=== PATIENT | male | born 1965 | race Caucasian/White ===

== ENCOUNTER 2023-05-31 14:30 | Observation (INO) ==
[2023-05-31] MEDS ORDERED: ASPIRIN CHEW 324 MG PO STA (15:04)
[2023-05-31] MEDS ORDERED: dilTIAZem HCl 5 MG/ML 5 ML VIAL IV ONE (15:30)
[2023-05-31] MEDS ORDERED: dilTIAZem HCl 5 MG/ML 5 ML VIAL IV STA (15:31)
[2023-05-31] MEDS ORDERED: SODIUM CHLORIDE 0.9% 1,000 ML IV ONE (15:32)
--- NOTE | 2023-05-31 16:04 | Emergency Department Note ---
History of Present Illness General Chief complaint: Arrhythmia/Palpitations Stated complaint: REF BY , PALPITATIONS Time Seen by Provider: 05/31/23 15:04 History of Present Illness Provider complaint: Shortness of breath Onset (ago): week(s) 3 Maximum Pain Intensity: 4 57-year-old male presents emergency department for shortness of breath. Patient was referred here by his PCP. Patient reports he has been having difficulty breathing cough for the last 3 weeks. Patient dates he went to his PCP today and was told he was in atrial fibrillation. Home Medications Medication Instructions Recorded Confirmed Type fluticasone 100 mcg-salmeterol 50 1 ea inhalation BID 05/31/23 05/31/23 History mcg/dose blistr powdr for inhalation (Advair Diskus) losartan 50 mg tablet 50 mg PO DAILY 05/31/23 05/31/23 History pantoprazole 40 mg tablet,delayed 40 mg PO QAM 05/31/23 05/31/23 History release tadalafil 5 mg tablet 5 mg PO ONCE PRN Sexual Activity 05/31/23 05/31/23 History Allergies Allergy/AdvReac Type Severity Reaction Status Date / Time tetanus toxoid, adsorbed Allergy Intermediate FEVER,SWELL Verified 05/31/23 15:39 ING Past Med/Surg History Medical History No pertinent family history HTN (hypertension) Surgical History No pertinent past surgical history Social History Smoking Status: Former smoker Feels Safe at Home: Yes Physical Exam Vital Signs Vital Signs - 24 hr 05/31/23 14:37 05/31/23 14:37 05/31/23 15:09 Temperature 36.5 C Temperature Source Temporal Artery Scan Pulse Rate 102 H 160 H Pulse Rate from SpO2 Sensor Respiratory Rate 20 Respiratory Effort / Characteristics Spontaneous Labored Spontaneous Respiratory Depth Normal Blood Pressure 137/79 Blood Pressure Mean 98 Pulse Oximetry 97 Oxygen Delivery Method Room Air Oxygen Flow Rate Sepsis Recent Fever Within 48 Hours No Sepsis New/Unexplained Change in Mental Status No Sepsis Action Taken by Nursing No Action Required 05/31/23 15:09 05/31/23 15:10 05/31/23 15:12 Temperature Temperature Source Pulse Rate 160 H 156 H Pulse Rate from SpO2 Sensor Respiratory Rate 23 25 H Respiratory Effort / Characteristics Respiratory Depth Blood Pressure 135/99 Blood Pressure Mean 111 Pulse Oximetry Oxygen Delivery Method Oxygen Flow Rate Sepsis Recent Fever Within 48 Hours Sepsis New/Unexplained Change in Mental Status Sepsis Action Taken by Nursing 05/31/23 15:12 05/31/23 15:20 05/31/23 15:30 Temperature Temperature Source Pulse Rate 153 H 160 H 151 H Pulse Rate from SpO2 Sensor Respiratory Rate 21 22 22 Respiratory Effort / Characteristics Respiratory Depth Blood Pressure Blood Pressure Mean Pulse Oximetry Oxygen Delivery Method Oxygen Flow Rate Sepsis Recent Fever Within 48 Hours Sepsis New/Unexplained Change in Mental Status Sepsis Action Taken by Nursing 05/31/23 15:36 05/31/23 15:36 05/31/23 15:40 Temperature Temperature Source Pulse Rate 102 H 112 H Pulse Rate from SpO2 Sensor Respiratory Rate 26 H 22 Respiratory Effort / Characteristics Respiratory Depth Blood Pressure 128/95 Blood Pressure Mean 108 Pulse Oximetry Oxygen Delivery Method Oxygen Flow Rate Sepsis Recent Fever Within 48 Hours Sepsis New/Unexplained Change in Mental Status Sepsis Action Taken by Nursing 05/31/23 15:50 05/31/23 16:00 05/31/23 16:10 Temperature Temperature Source Pulse Rate 103 H 114 H 112 H Pulse Rate from SpO2 Sensor Respiratory Rate 15 16 20 Respiratory Effort / Characteristics Respiratory Depth Blood Pressure Blood Pressure Mean Pulse Oximetry Oxygen Delivery Method Oxygen Flow Rate Sepsis Recent Fever Within 48 Hours Sepsis New/Unexplained Change in Mental Status Sepsis Action Taken by Nursing 05/31/23 16:23 05/31/23 16:30 05/31/23 16:30 Temperature Temperature Source Pulse Rate 141 H 142 H Pulse Rate from SpO2 Sensor Respiratory Rate 23 Respiratory Effort / Characteristics Respiratory Depth Blood Pressure 102/73 Blood Pressure Mean 78 Pulse Oximetry Oxygen Delivery Method Oxygen Flow Rate Sepsis Recent Fever Within 48 Hours Sepsis New/Unexplained Change in Mental Status Sepsis Action Taken by Nursing 05/31/23 16:40 05/31/23 16:40 05/31/23 16:46 Temperature Temperature Source Pulse Rate 137 H Pulse Rate from SpO2 Sensor 97 H Respiratory Rate 22 Respiratory Effort / Characteristics Respiratory Depth Blood Pressure Blood Pressure Mean Pulse Oximetry 98 94 Oxygen Delivery Method Room Air Room Air Oxygen Flow Rate 0 Sepsis Recent Fever Within 48 Hours Sepsis New/Unexplained Change in Mental Status Sepsis Action Taken by Nursing 05/31/23 16:48 05/31/23 16:48 05/31/23 16:50 Temperature Temperature Source Pulse Rate 128 H 126 H Pulse Rate from SpO2 Sensor 104 H 114 H Respiratory Rate 15 19 Respiratory Effort / Characteristics Respiratory Depth Blood Pressure 152/92 H Blood Pressure Mean 116 Pulse Oximetry 97 96 Oxygen Delivery Method Oxygen Flow Rate Sepsis Recent Fever Within 48 Hours Sepsis New/Unexplained Change in Mental Status Sepsis Action Taken by Nursing 05/31/23 17:00 05/31/23 17:00 05/31/23 17:10 Temperature Temperature Source Pulse Rate 138 H 130 H Pulse Rate from SpO2 Sensor 89 96 H Respiratory Rate 15 18 Respiratory Effort / Characteristics Respiratory Depth Blood Pressure 170/110 H Blood Pressure Mean 122 Pulse Oximetry 94 96 Oxygen Delivery Method Oxygen Flow Rate Sepsis Recent Fever Within 48 Hours Sepsis New/Unexplained Change in Mental Status Sepsis Action Taken by Nursing 05/31/23 17:15 05/31/23 17:15 05/31/23 17:20 Temperature Temperature Source Pulse Rate 131 H 127 H Pulse Rate from SpO2 Sensor 100 H 91 H Respiratory Rate 21 19 Respiratory Effort / Characteristics Respiratory Depth Blood Pressure 142/117 H Blood Pressure Mean 134 Pulse Oximetry 95 97 Oxygen Delivery Method Oxygen Flow Rate Sepsis Recent Fever Within 48 Hours Sepsis New/Unexplained Change in Mental Status Sepsis Action Taken by Nursing 05/31/23 17:30 05/31/23 17:40 05/31/23 18:06 Temperature Temperature Source Pulse Rate 118 H 128 H 126 H Pulse Rate from SpO2 Sensor 88 83 120 H Respiratory Rate 15 16 21 Respiratory Effort / Characteristics Respiratory Depth Blood Pressure Blood Pressure Mean Pulse Oximetry 97 93 96 Oxygen Delivery Method Oxygen Flow Rate Sepsis Recent Fever Within 48 Hours Sepsis New/Unexplained Change in Mental Status Sepsis Action Taken by Nursing 05/31/23 18:07 05/31/23 18:07 05/31/23 18:10 Temperature Temperature Source Pulse Rate 134 H 113 H Pulse Rate from SpO2 Sensor 62 108 H Respiratory Rate 24 24 Respiratory Effort / Characteristics Respiratory Depth Blood Pressure 160/135 H Blood Pressure Mean 141 Pulse Oximetry 94 95 Oxygen Delivery Method Oxygen Flow Rate Sepsis Recent Fever Within 48 Hours Sepsis New/Unexplained Change in Mental Status Sepsis Action Taken by Nursing 05/31/23 18:20 05/31/23 18:30 05/31/23 18:31 Temperature Temperature Source Pulse Rate 139 H 120 H Pulse Rate from SpO2 Sensor 129 H 90 Respiratory Rate 20 22 Respiratory Effort / Characteristics Respiratory Depth Blood Pressure 139/110 H Blood Pressure Mean 130 Pulse Oximetry 97 93 Oxygen Delivery Method Oxygen Flow Rate Sepsis Recent Fever Within 48 Hours Sepsis New/Unexplained Change in Mental Status Sepsis Action Taken by Nursing 05/31/23 18:31 05/31/23 18:40 05/31/23 18:50 Temperature Temperature Source Pulse Rate 111 H 124 H 128 H Pulse Rate from SpO2 Sensor 108 H 109 H 81 Respiratory Rate 15 22 22 Respiratory Effort / Characteristics Respiratory Depth Blood Pressure Blood Pressure Mean Pulse Oximetry 96 97 94 Oxygen Delivery Method Oxygen Flow Rate Sepsis Recent Fever Within 48 Hours Sepsis New/Unexplained Change in Mental Status Sepsis Action Taken by Nursing 05/31/23 19:00 05/31/23 19:17 Temperature Temperature Source Pulse Rate 126 H 135 H Pulse Rate from SpO2 Sensor Respiratory Rate 25 H Respiratory Effort / Characteristics Respiratory Depth Blood Pressure Blood Pressure Mean Pulse Oximetry Oxygen Delivery Method Oxygen Flow Rate Sepsis Recent Fever Within 48 Hours Sepsis New/Unexplained Change in Mental Status Sepsis Action Taken by Nursing Physical Exam GENERAL: oriented to person, place, and time. appears well-developed and well- nourished. HENT: Exam performed. - Head: Normocephalic and atraumatic. EYES: Conjunctivae and EOM are normal. Right eye exhibits no discharge. Left eye exhibits no discharge. No scleral icterus. NECK: Normal range of motion. Neck supple. No JVD present. CV: Tachycardic rate, irregular rhythm, normal heart sounds and intact distal pulses. There is no peripheral edema. Palpable radial pulses bue. PULM/CHEST: Effort normal and breath sounds normal. No respiratory distress. No stridor. no wheezes. no rales. ABD: The abdomen is soft. There is no tenderness. NEURO: Motor and sensation grossly intact. SKIN: Skin is warm and dry. He is not diaphoretic. PSYCH: normal mood and affect. Behavior is normal. Judgment and thought content normal. Course Course 1530: The patient was evaluated in room B3. A complete history and physical exam was performed Cardiac monitoring: An order was placed for continuous cardiac monitoring. The monitor shows a rate of 140-160 with atrial fibrilation rhythm interpreted by me Patient in A-fib RVR. Cardizem 20 mg ordered for the patient. Patient's ventricular rate improved. Labs and imaging pending. 1641: Patient back in A-fib RVR with a heart rate in [id number]. Cardizem drip will be initiated. Patient is COVID-positive. Labs are pending. 1845: Vital signs stable on Cardizem drip. Labs show an elevated D-dimer, CTA negative for PE. Troponin negative. Patient be admitted to the [facility] hospitalist team. Administered Medications Diltiazem HCl 125 mg/ Dextrose 125 mls @ 7.5 mls/hr IV .[id number] LAINA; Protocol Stop: 06/30/23 16:44 Last Titration: 05/31/23 18:05 Dose: 7.5 mg/hr, 7.5 mls/hr Documented By: EZ Co-signed By: ESPERANZA Admin: 05/31/23 16:42 Dose: 5 mg/hr, 5 mls/hr Documented By: ESPERANZA Co-signed By: EZ Heparin Sodium/Dextrose (Heparin Sodium/Dextrose) 25,000 units in 500 mls @ 32 mls/hr IV .[id number] LAINA; Protocol Stop: 06/30/23 20:29 Last Admin: 05/31/23 20:36 Dose: 1,600 units/hr, 32 mls/hr Documented By: EZ Co-signed By: Nitroglycerin (Nitroglycerin 2% Ointment 30gm Tube) 0.5 inch EXT Q6 LAINA Stop: 06/30/23 20:29 Last Admin: 05/31/23 20:33 Dose: 0.5 inch Documented By: EZ Discontinued Medications Aspirin (Aspirin Chew 324 Mg) 324 mg PO NOW STA Stop: 05/31/23 15:05 Last Admin: 05/31/23 15:35 Dose: 324 mg Documented By: EZ Diltiazem HCl (Diltiazem Hcl 5 Mg/Ml 5 Ml Vial) Confirm Administered Dose 25 mg IV .STK-MED ONE Stop: 05/31/23 15:31 Last Admin: 05/31/23 15:41 Dose: Not Given Documented By: EZ Diltiazem HCl (Diltiazem Hcl 5 Mg/Ml 5 Ml Vial) 20 mg IV NOW STA Stop: 05/31/23 15:32 Last Admin: 05/31/23 15:41 Dose: 20 mg Documented By: EZ Co-signed By: QGV Sodium Chloride (Nss) 1,000 mls @ 999 mls/hr IV .Q1H1M ONE Stop: 05/31/23 16:32 Last Infusion: 12/06/23 16:44 Dose: Infused Documented By: Admin: 05/31/23 15:41 Dose: 999 mls/hr Documented By: EZ Ioversol (Optiray 320 125ml) 118 ml IV ONCE ONE Stop: 05/31/23 17:59 Last Admin: 05/31/23 17:59 Dose: 118 ml Documented By: DINO Miscellaneous (Stat Iv Infusion Titration Per Protocol) 1 each N/A NOW STA Stop: 05/31/23 16:32 Last Admin: 05/31/23 16:48 Dose: Not Given Documented By: ESPERANZA Critical Care Time Critical Care Time: Yes Total Critical Care Time: 76 I have personally spent greater than 76 minutes of critical care time in the direct management of this patient. This includes bedside care, interpretation of diagnostic studies, and testing, discussion with consultants, patient, and family members, and other required patient management activities. This 76 minutes is in excess of all separately billable procedures. Medical Decision Making Laboratory Data Attestation: I reviewed the patient's lab results. 05/31/23 14:56 05/31/23 14:56 Lab Results 05/31/23 05/31/23 Range/Units 14:56 15:15 WBC 5.91 (4.8-10.8) K/ul RBC 5.36 (4.70-6.10) M/uL Hgb 16.6 (14.0-18.0) g/dl Hct 46.6 (42.0-52.0) % MCV 86.9 (80.0-100.0) fL MCH 31.0 (25.0-34.0) pg MCHC 35.6 (32.0-36.0) g/dL RDW Std Deviation 40.4 (36.4-46.3) fL RDW Coeff of Claudette 12.9 (11.5-14.5) % Plt Count 270 (130-400) K/uL MPV 9.8 (9.4-12.4) fL Immature Gran % (Auto) 0.5 % Neut % (Auto) 59.0 % Lymph % (Auto) 29.9 % Wolfe % (Auto) 9.6 % Eos % (Auto) 0.3 % Baso % (Auto) 0.7 % Neut # (Auto) 3.48 (1.40-6.50) K/uL Lymph # (Auto) 1.77 (1.20-3.40) K/uL Wolfe # (Auto) 0.57 (0.11-0.59) K/uL Eos # (Auto) 0.02 (0.00-0.50) K/uL Baso # (Auto) 0.04 (0.00-0.20) K/uL Immature Gran # (Auto) 0.03 (0.01-0.20) K/uL PT 10.9 (9.0-12.0) Seconds INR 1.0 (0.9-1.1) APTT 27 (21-31) Seconds PTT Ratio 1.0 D-Dimer 1050 H* (0-500) ug/L FEU Sodium 139 (136-145) mmol/L Potassium 4.1 (3.5-5.1) mmol/L Chloride 103 (98-107) mmol/L Carbon Dioxide 26 (21-32) mmol/L Anion Gap 10 (3-11) BUN 15 (6-23) mg/dl Creatinine 1.26 (0.6-1.4) mg/dl Est Cr Clr Drug Dosing 80.3 ml/min Est GFR ( Amer) 72.9 ml/min Est GFR (Non-Af Amer) 62.9 ml/min BUN/Creatinine Ratio 11.9 (10-20) Glucose 118 H (70-99(Fasting)) mg/dl Calcium 10.4 H (8.6-10.3) mg/dl Troponin I High Sens 6.4 (0-20) pg/ml Lipase 70 (11-82) U/L SARS-CoV-2, RNA, NAAT POSITIVE A* (NEGATIVE) Imaging Data Attestation: I personally reviewed and interpreted this imaging study as follows: My Impression: Chest x-ray negative. Airway clear. No pneumothorax. No consolidation. No cardiomegaly or cephalization.. No free air under the diaphragm. No fractures of the skeletal structures. Radiologist's Impression: Chest X-Ray 05/31/23 15:04 XR chest 1V portable HISTORY: Cough. Shortness of breath. Chest pain, nonspecific COMPARISON: None. FINDINGS: The lungs are clear. Cardiac silhouette is normal in size. No pleural effusions. No pneumothorax. IMPRESSION: No acute process. ACT 112: Negative or not required by law. Electronically signed by: Montrell Woodard M.D. 05/31/2023 4:09 PM Chest CTA 05/31/23 17:03 CHEST CTA for PULMONARY ARTERIES CT DOSE: 887.09 mGy.cm HISTORY: Shortness of breath. Interval development of atrial fibrillation. ro PE TECHNIQUE: Multiaxial CT images of the chest were performed following the intravenous administration of contrast to evaluate the pulmonary arteries. 3D/Maximal intensity projection images were also obtained. Sagittal and coronal reformations were also reviewed. A dose lowering technique was utilized adhering to the principles of ALARA. COMPARISON STUDY: None. FINDINGS: Normal caliber thoracic aorta with no evidence for a dissection. The heart is top normal in size. No filling defects within the pulmonary arteries to suggest a pulmonary embolus. Limited views of the upper abdomen demonstrate hepatic steatosis and a normal spleen. The visualized adrenal glands are unremarkable. The thyroid gland enhances normally. Normal esophagus. No pleural or pericardial effusions. Calcified subcarinal lymph nodes. No lymphadenopathy within the chest. No acute fractures. No pneumothorax. Mild central bronchial wall thickening. Calcified granuloma within the right lower lobe. Right lower lobe linear densities favor subsegmental atelectasis. There are few small patchy and nodular groundglass airspace opacities within the right upper lobe posteriorly. This favors a low-grade pneumonitis. IMPRESSION: 1. No evidence for a pulmonary embolus. 2. There are few small patchy and nodular groundglass airspace opacities within the right upper lobe posteriorly. This favors a low-grade pneumonitis. 3. Hepatic steatosis. ACT 112: Negative or not required by law. Electronically signed by: Montrell Woodard M.D. 05/31/2023 6:33 PM ECG Data Attestation: I personally reviewed and interpreted this ECG as follows: Additional Comments: EKG #1 at 1459: Atrial fibrillation with a rate of 162. QRS [address] elevation or ST depression. EKG #2 at 1534: Atrial fibrillation with a rate of 156. QRS [address] elevation or ST depression. EKG #3 at 1535 status post Cardizem 20 mg IV bolus: Atrial fibrillation with a rate of 91. QRS and QTc intervals are within normal limits. No ST elevation or ST depression. MDM Narrative 1530: The patient was evaluated in room B3. A complete history and physical exam was performed Cardiac monitoring: An order was placed for continuous cardiac monitoring. The monitor shows a rate of 140-160 with atrial fibrilation rhythm interpreted by me Patient in A-fib RVR. Cardizem 20 mg ordered for the patient. Patient's ventricular rate improved. Labs and imaging pending. 1641: Patient back in A-fib RVR with a heart rate in [id number]. Cardizem drip will be initiated. Patient is COVID-positive. Labs are pending. 1845: Vital signs stable on Cardizem drip. Labs show an elevated D-dimer, CTA negative for PE. Troponin negative. [facility] & Plan Atrial fibrillation Discharge Plan Visit Data Chief Complaint: Arrhythmia/Palpitations Stated Complaint: REF BY , PALPITATIONS ED Provider: Jeferson Zazueta Discharge Problem: Atrial fibrillation Patient Disposition: Admitted As Inpatient Forms [facility] Pres[facility] Prescriptions: No Action losartan 50 mg tablet 50 mg PO DAILY pantoprazole 40 mg tablet,delayed release (DR/EC) 40 mg PO QAM fluticasone propion-salmeterol [Advair Diskus] 100-50 mcg/dose blister with device 1 ea INHALATION BID tadalafil 5 mg tablet 5 mg PO ONCE PRN (Reason: Sexual Activity) Referrals Referrals: Analy Betancourt DO [Primary Care Provider] - Discharge Problem: Atrial fibrillation Qualifiers: Atrial fibrillation type: unspecified Qualified Code(s): I48.91 - Unspecified atrial fibrillation
--- NOTE | 2023-05-31 16:08 | Electrocardiogram Report ---
Test Reason : Blood Pressure : / mmHG Vent. Rate : 162 BPM Atrial Rate : 000 BPM P-R Int : 000 ms QRS Dur : 076 ms QT Int : 244 ms P-R-T Axes : 000 020 066 degrees QTc Int : 400 ms Atrial fibrillation with rapid ventricular response Septal infarct , age undetermined Abnormal ECG When compared with ECG of 19-OCT-2006 13:46, Atrial fibrillation has replaced Sinus rhythm Vent. rate has increased BY 61 BPM Confirmed by Aries Kirk ([id number]) on 05/31/2023 4:07:53 PM Referred By: Confirmed By:Aries Kirk
--- NOTE | 2023-05-31 16:11 | XRay Report ---
XR chest 1V portable HISTORY: Cough. Shortness of breath. Chest pain, nonspecific COMPARISON: None. FINDINGS: The lungs are clear. Cardiac silhouette is normal in size. No pleural effusions. No pneumot horax. IMPRESSION: No acute process. ACT 112: Negative or not required by law. Electronically signed by: Montrell Woodard M.D. 05/31/2023 4:09 PM
[2023-05-31] MEDS ORDERED: STAT IV Infusion **Titration per Protocol STA (16:31)
[2023-05-31] MEDS: dilTIAZem HCL 125 MG in DEXTROSE 5% 100 ML IV SCH (16:42)
[2023-05-31 16:55] LABS: Partial Thromboplastin Time 27 Seconds (21-31); Prothrombin Time 10.9 Seconds (9.0-12.0)
[2023-05-31 17:00] LABS: D Dimer 1050 ug/L FEU (0-500)
[2023-05-31 17:05] LABS: Hematocrit (blood only) 46.6 % (42.0-52.0); Hemoglobin 16.6 g/dl (14.0-18.0); Mean Corpuscular Hgb Conc 35.6 g/dL (32.0-36.0); Mean Corpuscular Volume 86.9 fL (80.0-100.0); Mean Platelet Volume 9.8 fL (9.4-12.4); Platelet Count 270 K/uL (130-400); RDW Coefficient of Variation 12.9 % (11.5-14.5); RDW Standard Deviation 40.4 fL (36.4-46.3); Red Blood Count 5.36 M/uL (4.70-6.10); White Blood Count 5.91 K/ul (4.8-10.8)
[2023-05-31 17:12] LABS: BUN Creatinine Ratio 11.9 (10-20); Calcium 10.4 mg/dl (8.6-10.3); Creatinine Clr Calc Pharmacy 80.3 ml/min; Est GFR (African American) 72.9 ml/min; Est GFR (Non-African American) 62.9 ml/min; Potassium 4.1 mmol/L (3.5-5.1)
[2023-05-31 17:18] LABS: Troponin I High Sensitivity 6.4 pg/ml (0-20)
[2023-05-31 17:55] LABS: Basophils # (auto) 0.04 K/uL (0.00-0.20); Basophils % (auto) 0.7 %; Eosinophils # (auto) 0.02 K/uL (0.00-0.50); Eosinophils % (auto) 0.3 %; Immature Granulocytes # (auto) 0.03 K/uL (0.01-0.20); Immature Granulocytes % (auto) 0.5 %; Lymphocytes # (auto) 1.77 K/uL (1.20-3.40); Lymphocytes % (auto) 29.9 %; Monocytes # (auto) 0.57 K/uL (0.11-0.59); Monocytes % (auto) 9.6 %; Neutrophils # (auto) 3.48 K/uL (1.40-6.50)
[2023-05-31] MEDS ORDERED: OPTIRAY 320 125ml IV ONE (17:58)
--- NOTE | 2023-05-31 18:36 | CT Scan Report ---
CHEST CTA for PULMONARY ARTERIES CT DOSE: 887.09 mGy.cm HISTORY: Shortness of breath. Interval development of atrial fibrillation. ro PE TECHNIQUE: Multiaxial CT images of the chest were performed following the intravenous administration of contrast to evaluate the pulmonary arteries. 3D/Maximal intensity projection images were also obta ined. Sagittal and coronal reformations were also reviewed. A dose lowering technique was utilized a dhering to the principles of ALARA. COMPARISON STUDY: None. FINDINGS: Normal caliber thoracic aorta with no evidence for a dissection. The heart is top normal in size. No filling defects within the pulmonary arteries to suggest a pulmonary embolus. Limited views of the upper abdomen demonstrate hepatic steatosis and a normal spleen. The visualized adrenal gland s are unremarkable. The thyroid gland enhances normally. Normal esophagus. No pleural or pericardial effusions. Calcified subcarinal lymph nodes. No lymphadenopathy within the chest. No acute fractures. No pneumothorax. Mild central bronchial wall thickening. Calcified granuloma within the right lower lobe. Right lower lobe linear densities favor subsegmental atelectasis. There are few small patchy an d nodular groundglass airspace opacities within the right upper lobe posteriorly. This favors a low-g rade pneumonitis. IMPRESSION: 1. No evidence for a pulmonary embolus. 2. There are few small patchy and nodular groundglass airspace opacities within the right upper lobe posteriorly. This favors a low-grade pneumonitis. 3. Hepatic steatosis. ACT 112: Negative or not required by law. Electronically signed by: Montrell Woodard M.D. 05/31/2023 6:33 PM
[2023-05-31] MEDS ORDERED: Heparin IV Adult Wt-Based Standard *NO* INITIAL Bolus Protocol IV STA (20:14)
[2023-05-31] MEDS: NITROGLYCERIN 2% OINTMENT 30GM TUBE EXT SCH (20:33)
[2023-05-31] MEDS: HEPARIN SODIUM/DEXTROSE 25,000 UNITS/500 ML BAG IV SCH (20:36)
[2023-05-31] MEDS ORDERED: FLUTICASONE/SALMETEROL 100/50 (ADVAIR) 14 PUFF/1 INHALER INH SCH (22:31)
[2023-05-31] MEDS ORDERED: NITROGLYCERIN SL 0.4 MG/TAB TAB SL PRN (22:31)
--- NOTE | 2023-05-31 22:41 | History & Physical Report ---
Date of Service May 31, 2023 Assessment & Plan (1) Atrial fibrillation: Plan: 57-year-old male with past med significant for hyperlipidemia, obstructive sleep apnea currently not on CPAP, hypertension, GERD presents with ongoing shortness of breath and cough going on for last 3 weeks, went to PCP office today for worsening sob and was found in rapid A-fib and was sent to ER. Rapid A-fib New onset COVID-positive Started on Cardizem drip which will be continued for now IV heparin Initial troponin negative Will Follow serial cardiac enzymes and echo Telemetry floor Cardiology consult in a.m. Hypertensive urgency Nitropaste On Cardizem drip On losartan at home which will be continued Will follow echo Close monitor Chest heaviness Will follow serial enzymes and echo Covid covid precautions close monitor. GERD Protonix DVT prophylaxis IV heparin Disposition Telemetry floor Full code History of Present Illness Chief Complaint: Rapid A-fib, COVID Primary Care Provider: Analy Betancourt, 57-year-old male with past med significant for hyperlipidemia, obstructive sleep apnea currently not on CPAP, hypertension, GERD presents with ongoing shortness of breath and cough going on for last 3 weeks, went to PCP office today for worsening sob and was found in rapid A-fib and was sent to ER. Patient states the last 3 weeks he is having cough and congestion and was getting progressively short of breath. Last weekend he had a temperature spike for 2 days. Yesterday had some loss of sensation of taste but that has come back today. Is getting more short of breath went to PCP and found to be in rapid A-fib. Patient states currently his shortness improved after his heart rate is under control. He also notes some chest heaviness today and is better now but still has some . Denies any headaches. No bodyaches. States appetite is good. No blurred visions. Has some sore throat. No nausea. No abdominal pain. Normal bowel and bladder movements. Denies any blood in the stools or black stools. No hematuria. Past medical history. As mentioned above Past surgical history. Colonoscopy. EGD. Lumbar spine fusion surgery. Carpectomy all bones on left wrist. Knee Repair cruciate ligament. Repair of nasal septum. Social history. Quit smoking 1992. Alcohol couple of times a week. No drug use. Family history. Aunt has diabetes. Uncle has diabetes. Allergies Allergy/AdvReac Type Severity Reaction Status Date / Time tetanus toxoid, adsorbed Allergy Intermediate FEVER,SWELL Verified 05/31/23 15:39 ING Home Medications Medication Instructions Recorded Confirmed Type fluticasone 100 mcg-salmeterol 50 1 ea inhalation BID 05/31/23 05/31/23 History mcg/dose blistr powdr for inhalation (Advair Diskus) losartan 50 mg tablet 50 mg PO DAILY 05/31/23 05/31/23 History pantoprazole 40 mg tablet,delayed 40 mg PO QAM 05/31/23 05/31/23 History release tadalafil 5 mg tablet 5 mg PO ONCE PRN Sexual Activity 05/31/23 05/31/23 History Past Med/Surg History Medical History No pertinent family history HTN (hypertension) Surgical History No pertinent past surgical history Social History Smoking Status: Never smoker Hx Alcohol Use: No Hx Substance Use: No Preferred Language: Yi Communication Ability: Effective Knockdown Worker Required: No Beliefs That Will Affect Care: None Other Information That Helps Us Care for You: No Feels Safe at Home: Yes Safety Concerns: Feels Safe At This Time Review of Systems Review of Systems: All systems reviewed & are unremarkable except as noted in HPI & below Physical Exam Physical Exam: General- Not in distress. Head- atraumatic Eyes- PERRL. ENT- oropharynx clear Neck- supple, no JVD. Lungs- clear to auscultation , no wheezing or crackles. Heart- irregular rhythm;Tachycardia, no murmur, no gallop. Abdomen- normal bowel sounds, soft, nontender, no distension. Extremities- no pretibial edema, no erythema seen. Neuro- alert, oriented x 3; PERRL, no facial palsy; no dysarthria; moves extremities. Skin- warm & dry Results & Data Results & Data Vital Signs (Past 12 Hours) Vital Signs Temp Pulse Resp BP Pulse Ox O2 Del Method O2 Flow Rate 05/31/23 19:17 135 H 05/31/23 19:00 126 H 25 H 05/31/23 18:50 128 H 22 94 05/31/23 18:40 124 H 22 97 05/31/23 18:31 111 H 15 96 05/31/23 18:31 139/110 H 05/31/23 18:30 120 H 22 93 05/31/23 18:20 139 H 20 97 05/31/23 18:10 113 H 24 95 05/31/23 18:07 134 H 24 94 05/31/23 18:07 160/135 H 05/31/23 18:06 126 H 21 96 05/31/23 17:40 128 H 16 93 05/31/23 17:30 118 H 15 97 05/31/23 17:20 127 H 19 97 05/31/23 17:15 142/117 H 05/31/23 17:15 131 H 21 95 05/31/23 17:10 130 H 18 96 05/31/23 17:00 170/110 H 05/31/23 17:00 138 H 15 94 05/31/23 16:50 126 H 19 96 05/31/23 16:48 128 H 15 97 05/31/23 16:48 152/92 H 05/31/23 16:46 137 H 22 94 05/31/23 16:40 Room Air 05/31/23 16:40 98 Room Air 0 05/31/23 16:30 142 H 23 05/31/23 16:30 102/73 05/31/23 16:23 141 H 05/31/23 16:10 112 H 20 05/31/23 16:00 114 H 16 05/31/23 15:50 103 H 15 05/31/23 15:40 112 H 22 05/31/23 15:36 102 H 26 H 05/31/23 15:36 128/95 05/31/23 15:30 151 H 22 05/31/23 15:20 160 H 22 05/31/23 15:12 153 H 21 05/31/23 15:12 135/99 05/31/23 15:10 156 H 25 H 05/31/23 15:09 160 H 23 05/31/23 15:09 160 H 05/31/23 14:37 36.5 C 102 H 20 137/79 97 Room Air Diagnostic Findings Laboratory Results WBC 5.91 K/ul (4.8-10.8) 05/31/23 14:56 RBC 5.36 M/uL (4.70-6.10) 05/31/23 14:56 Hgb 16.6 g/dl (14.0-18.0) 05/31/23 14:56 Hct 46.6 % (42.0-52.0) 05/31/23 14:56 MCV 86.9 fL (80.0-100.0) 05/31/23 14:56 MCH 31.0 pg (25.0-34.0) 05/31/23 14:56 MCHC 35.6 g/dL (32.0-36.0) 05/31/23 14:56 RDW Std Deviation 40.4 fL (36.4-46.3) 05/31/23 14:56 RDW Coeff of Claudette 12.9 % (11.5-14.5) 05/31/23 14:56 Plt Count 270 K/uL (130-400) 05/31/23 14:56 MPV 9.8 fL (9.4-12.4) 05/31/23 14:56 Immature Gran % (Auto) 0.5 % 05/31/23 14:56 Neut % (Auto) 59.0 % 05/31/23 14:56 Lymph % (Auto) 29.9 % 05/31/23 14:56 Mckinley % (Auto) 9.6 % 05/31/23 14:56 Eos % (Auto) 0.3 % 05/31/23 14:56 Baso % (Auto) 0.7 % 05/31/23 14:56 Neut # (Auto) 3.48 K/uL (1.40-6.50) 05/31/23 14:56 Lymph # (Auto) 1.77 K/uL (1.20-3.40) 05/31/23 14:56 Mckinley # (Auto) 0.57 K/uL (0.11-0.59) 05/31/23 14:56 Eos # (Auto) 0.02 K/uL (0.00-0.50) 05/31/23 14:56 Baso # (Auto) 0.04 K/uL (0.00-0.20) 05/31/23 14:56 Immature Gran # (Auto) 0.03 K/uL (0.01-0.20) 05/31/23 14:56 PT 10.9 Seconds (9.0-12.0) 05/31/23 14:56 INR 1.0 (0.9-1.1) 05/31/23 14:56 APTT 27 Seconds (21-31) 05/31/23 14:56 PTT Ratio 1.0 05/31/23 14:56 D-Dimer 1050 ug/L FEU (0-500) H* 05/31/23 14:56 Sodium 139 mmol/L (136-145) 05/31/23 14:56 Potassium 4.1 mmol/L (3.5-5.1) 05/31/23 14:56 Chloride 103 mmol/L (98-107) 05/31/23 14:56 Carbon Dioxide 26 mmol/L (21-32) 05/31/23 14:56 Anion Gap 10 (3-11) 05/31/23 14:56 BUN 15 mg/dl (6-23) 05/31/23 14:56 Creatinine 1.26 mg/dl (0.6-1.4) 05/31/23 14:56 Est Cr Clr Drug Dosing 80.3 ml/min 05/31/23 14:56 Est GFR ( Amer) 72.9 ml/min 05/31/23 14:56 Est GFR (Non-Af Amer) 62.9 ml/min 05/31/23 14:56 BUN/Creatinine Ratio 11.9 (10-20) 05/31/23 14:56 Glucose 118 mg/dl (70-99(Fasting)) H 05/31/23 14:56 Calcium 10.4 mg/dl (8.6-10.3) H 05/31/23 14:56 Troponin I High Sens 6.4 pg/ml (0-20) 05/31/23 14:56 Lipase 70 U/L (11-82) 05/31/23 14:56 SARS-CoV-2, RNA, NAAT POSITIVE (NEGATIVE) A* 05/31/23 15:15 Impressions Chest X-Ray 05/31/23 15:04 XR chest 1V portable HISTORY: Cough. Shortness of breath. Chest pain, nonspecific COMPARISON: None. FINDINGS: The lungs are clear. Cardiac silhouette is normal in size. No pleural effusions. No pneumothorax. IMPRESSION: No acute process. ACT 112: Negative or not required by law. Electronically signed by: Montrell Woodard M.D. 05/31/2023 4:09 PM Chest CTA 05/31/23 17:03 CHEST CTA for PULMONARY ARTERIES CT DOSE: 887.09 mGy.cm HISTORY: Shortness of breath. Interval development of atrial fibrillation. ro PE TECHNIQUE: Multiaxial CT images of the chest were performed following the intravenous administration of contrast to evaluate the pulmonary arteries. 3D/Maximal intensity projection images were also obtained. Sagittal and coronal reformations were also reviewed. A dose lowering technique was utilized adhering to the principles of ALARA. COMPARISON STUDY: None. FINDINGS: Normal caliber thoracic aorta with no evidence for a dissection. The heart is top normal in size. No filling defects within the pulmonary arteries to suggest a pulmonary embolus. Limited views of the upper abdomen demonstrate hepatic steatosis and a normal spleen. The visualized adrenal glands are unremarkable. The thyroid gland enhances normally. Normal esophagus. No pleural or pericardial effusions. Calcified subcarinal lymph nodes. No lymphadenopathy within the chest. No acute fractures. No pneumothorax. Mild central bronchial wall thickening. Calcified granuloma within the right lower lobe. Right lower lobe linear densities favor subsegmental atelectasis. There are few small patchy and nodular groundglass airspace opacities within the right upper lobe posteriorly. This favors a low-grade pneumonitis. IMPRESSION: 1. No evidence for a pulmonary embolus. 2. There are few small patchy and nodular groundglass airspace opacities within the right upper lobe posteriorly. This favors a low-grade pneumonitis. 3. Hepatic steatosis. ACT 112: Negative or not required by law. Electronically signed by: Montrell Woodard M.D. 05/31/2023 6:33 PM ECG Additional Comments: ECG. A-fib with rapid ventricle response rate of 162. Code Status & VTE Plan VTE Prophylaxis Plan VTE Prophylaxis will be ordered: Yes (1) Atrial fibrillation Atrial fibrillation type: unspecified Qualified Code(s): I48.91 - Unspecified atrial fibrillation
[2023-06-01] MEDS: NITROGLYCERIN 2% OINTMENT 30GM TUBE EXT SCH ×5 (02:06→23:30)
[2023-06-01 02:41] LABS: Hematocrit (blood only) 43.6 % (42.0-52.0); Hemoglobin 15.2 g/dl (14.0-18.0); Mean Corpuscular Hemoglobin 30.7 pg (25.0-34.0); Mean Corpuscular Hgb Conc 34.9 g/dL (32.0-36.0); Mean Corpuscular Volume 88.1 fL (80.0-100.0); Mean Platelet Volume 9.6 fL (9.4-12.4); Platelet Count 231 K/uL (130-400); RDW Coefficient of Variation 12.9 % (11.5-14.5); RDW Standard Deviation 41.4 fL (36.4-46.3); Red Blood Count 4.95 M/uL (4.70-6.10)
[2023-06-01 02:54] LABS: BUN Creatinine Ratio 14.5 (10-20); Calcium 9.1 mg/dl (8.6-10.3); Creatinine Clr Calc Pharmacy 91.6 ml/min; Est GFR (African American) 85.9 ml/min; Est GFR (Non-African American) 74.1 ml/min; Magnesium 1.6 mg/dl (1.7-2.4); Potassium 3.7 mmol/L (3.5-5.1)
[2023-06-01 03:02] LABS: Troponin I High Sensitivity 8.2 pg/ml (0-20)
[2023-06-01 03:20] LABS: Partial Thromboplastin Ratio 1.7; Partial Thromboplastin Time 49 Seconds (21-31)
--- OUTSIDE RECORDS SUMMARY | 2023-06-01 03:24 | External Medical Summary | Summary of Care ---
Author Name Unknown Organization [facility] Address [address] [place] [address] Phone [phone] Care Team Providers Care Cardiopulmonary Technologist Chief Name Role Phone Analy Betancourt DO Primary Care Provider [phone] Reason for Visit * Reason Onset Date Comments Medication Refill 05/04/2023 Encounter Details Date Type Department Care Team (Late st Contact Info) Description 05/04/2023 Refill [facility] [address] [place] [address] Analy Betancourt [address] [place] [address] Allergies Active Allergy Reactions Criticality Noted Date Comments Tetanus Toxoid 09/26/2000 High Fever, swelling of arm. Missed one week of school documented as of this encounter (statuses as of 05/04/2023) Medications Medication Sig Dispensed Refills Start Date End Date Status Ibuprofen 200 MG Oral CapsuleIndicatio ns:as needed Take 1 Capsule by mouth every 4 hours as needed. 0 Active Pantoprazole Sodium 40 MG Oral Tablet Delayed Release (Protonix) Take 1 Tablet by mouth in the morning. 90 Tablet 3 04/27/2023 Active Losartan Potassium 50 MG Oral Tablet (Cozaar)Indicati ons:HTN, goal below 130/80 Take 1 Tablet by mouth in the morning. 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, subsequent encounter 03/16/2022 Gastroesophageal reflux dise ase with esophagitis without hemorrhage 01/21/2021 Obstructive sleep apnea of adult 01/21/2021 Elevated blood pressure, situational 01/21/2021 Screen for colon cancer 02/24/2016 Dyslipidemia, goal LDL below 100 documented as of this encounter (statuses as of 05/04/2023) Resolved Problems Problem Noted Date Diagnosed Date Resolved Date Routine medical exam 02/24/2016 018 Screening for cardiovascular condition 02/24/2016 06/11/2018 Screening for diabetes mellitus 02/24/2016 06/11/2018 Screening for prostate cancer 02/24/2016 06/11/2018 Erectile dysfunction 02/24/2016 018 Stye 02/24/2016 06/11/2018 Skin tag 02/24/2016 06/11/2018 Overweight (BMI 25.0-29.9) 10/25/2011 1 08/12/2017 Overview: bmi= 25.79 10/25/11 Myalgia and myositis 10/25/2011 018 Acute URI 10/25/2011 06/02/2014 Cough 10/25/2011 06/11/2018 Respiratory abnormality 10/25/201105/26 Overview: ICD-10 update of inactive term Sleep apnea 01/05/2010 06/11/2018 Overview: 05/24/10 CPAP setting at 11cm documented as of this encounter (statuses as of 05/04/2023) Immunizations Name Administration Dates Next Due PPD 02/22/2021,11/06/2015 documented as of this encounter Social History Tobacco Use Types Packs/Day Years Used Date Smoking Tobacco: Former Cigarettes Q uit: 06/26/1992 Smokeless Tobacco: Never Alcohol Use Standard Drinks/Week Comments Yes 0 (1 standard drink = 0.6 oz pur e alcohol) 2x week PHQ-2 Answer Date Recorded PHQ-2 Score 0 06/11/2018 Sex and Gender Information Value Date Recorded Sex Assigned at Not on file Gender Identity Male 03/30/2020 3:13 PM EDT Sexual Orientation Straight 03/30/2020 3: 13 PM EDT Job Start Date Occupation Industry Not on file Not on file Not on file documented as of this encounter Miscellaneous Notes * Telephone Encounter - Kristian Moreno RPh - 05/04/2023 5:00 PM ESTSigned Prescriptions: Disp Refills Tadalafil 5 MG Oral Tablet (Cialis) 30 Tab*5 Sig: TAKE 1 TABLET BY MOUTH ONCE FOR ONE DOSE PRIOR TO INTERCOURSE NO MORE THAN 1 DOSE IN 24 HOURSAuthorizing Provider:Valerie STEELE User: KRISTIAN MORENO Electronically signed by [facility] located [facility] at 05/04/2023 5:00 PM EST documented in this encounter Plan of Treatment Scheduled Procedures Name Priority Associated Diagnoses Date/Ti me COLONOSCOPY FLEXIBLE PROXIMA L DIAGNOSTIC Recall Encounter for screening colonoscopy Health Maintenance Due Date Last Done Comments Hepatitis B (1 of 3 - 3-dose series) 1965 COVID-19 Vaccine (#1) 05/06/1966 Albumin/Creatinine Ratio 11/04/1983 Cologuard 2010 Fecal Occult Blood Test 2010 Sigmoidoscopy 2010 Zoster Vaccines (1 of 2) 11/04/2015 Depression Screening 06/11/2019 06/11/2018 Influenza Vaccine (FLU shot) (#1) 2023 GFR 05/27/2023 05/27/2022, 1001/2020, 04/18/2011, Additional history exists Lipid Panel 04/02/2025 04/02/2020, 06/24/2004 Diabetes Screening 06/01/2025 06/01/2022, 1 07/28/2021, 04/02/2020, Additional history exists Colonoscopy 10/21/2027 10/20/2017, 10/20/2017 Colorectal Cancer Screening 10/21/2027 Hepatitis C Screening Completed 09/07/2018 GARDASIL-HPV IMMUNIZATION SERIES Aged Out No longer eligible based on patient's age to complete this topic MENINGOCOCCAL (MENACTRA/MENVEO) Aged Out No longer eligible based on patient's age to complete this topic Pneumococcal Vaccine: Pediatrics (0 to 5 Years) and At-Risk Patients (6 to 64 Years) Aged Out No longer eligible based on patient's age to complete this topic documented as of this encounter Medical Devices Implanted Type Area Forge Shop Supervisor Device Identifier Shelf Expiration Date Model / Serial / Lot Dx Swivelock Sl 3.5x8.5mm X5 - [id number] Implanted:Qty: 1 on 06/01/2022 by Chucho Hopper MD at OR [facility] Left: Wrist [employer] 05/25/2026 [id number] / / [id number] documented as of this encounter Care Teams Cardiopulmonary Technologist Chief Relationship Specialty Start Date End Date Analy Betancourt DO [address] [place] [facility] [place] [address] PCP - General Family Medicine 04/18/11 documented as of this encounter
--- OUTSIDE RECORDS SUMMARY | 2023-06-01 03:24 | External Medical Summary | Summary of Care ---
Author Name Unknown Organization [facility] Address [address] [place] [address] Phone [phone] Care Team Providers Care Disability Benefits Specialist Name Role Phone EugenioAnaly curiel Loly CHAWLA Primary Care Provider + [phone] Reason for Visit * Reason Comments Acute Coughing and shortne ss of breath and lots of mucus (yellow) sore throat from mucus going on for a month Encounter Details Date Type Department Care Team (Late st Contact Info) Description 05/26/2023 2:20 PM EST Office Visit [facility] [address] [place] [address] Dian Oquendo MD [address] [place] [address] Post-viral cough syndrome*; Obstructive sleep apnea of adult Allergies Active Allergy Reactions Criticality Noted Date Comments Tetanus Toxoid 09/26/2000 High Fever, swelling of arm. Missed one week of school documented as of this encounter (statuses as of 05/26/2023) Medications Medication Sig Dispensed Refills Start Date End Date Status Ibuprofen 200 MG Oral CapsuleIndication s:as needed Take 1 Capsule by mouth every 4 hours as needed. 0 Active Pantoprazole Sodium 40 MG Oral Tablet Delayed Release (Protonix) Take 1 Tablet by mouth in the morning. 90 Tablet 3 04/27/2023 Active Losartan Potassium 50 MG Oral Tablet (Cozaar)Indicatio ns:HTN, goal below 130/80 Take 1 Tablet by mouth in the morning. 100 Tablet 3 04/27/2023 Active Tadalafil 5 MG Oral Tablet (Cialis) TAKE 1 TABLET BY MOUTH ONCE FOR ONE DOSE PRIOR TO INTERCOURSE NO MORE THAN 1 DOSE IN 24 HOURS 30 Tablet 5 05/04/2023 Active predniSONE 20 MG Oral Tablet (Deltasone)Indica tions:Post-viral cough syndrome Take 2 Tablets by mouth in the morning for 5 days. 10 Tablet 0 05/26/2023 05/31/2023 Active Fluticasone-Salme terol 100-50 MCG/ACT Inhalation Aerosol Powder Breath Activated (Advair Diskus)Indication s:Post-viral cough syndrome Inhale 1 Puff by mouth in the morning and 1 Puff before bedtime. 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, subsequent encounter 03/16/2022 Gastroesophageal reflux dise ase with esophagitis without hemorrhage 01/21/2021 Obstructive sleep apnea of adult 01/21/2021 Elevated blood pressure, situational 01/21/2021 Screen for colon cancer 02/24/2016 Dyslipidemia, goal LDL below 100 documented as of this encounter (statuses as of 05/26/2023) Resolved Problems Problem Noted Date Diagnosed Date [...] as of this encounter (statuses as of 05/26/2023) Immunizations Name Administration Dates Next Due PPD 02/22/2021,11/06/2015 documented as of this encounter Social History Tobacco Use Types Packs/Day Years Used Date Smoking Tobacco: Former Cigarettes Q uit: 06/26/1992 Passive Smoke Exposure: Past Smokeless Tobacco: Never Tobacco Cessation:Counseling Given: Not Answered Alcohol Use Standard Drinks/Week Comments Yes 0 [...] on file documented as of this encounter Last Filed Vital Signs Vital Sign Reading Time Taken Comments Blood Pressure 160/92 05/26/2023 2:22 PM EST Pulse 96 05/26/2023 2:22 PM EST Temperature 36.5 C (97.7 F) 05/26/2023 2:22 PM ES T Respiratory Rate 18 05/26/2023 2:22 PM EST Oxygen Saturation 98% 05/26/2023 2:22 PM EST Inhaled Oxygen Concentration - - Weight 111.1 kg (245 lb) 05/26/2023 2:22 PM EST Height 177.8 cm (5' 10") 05/26/2023 2:22 PM EST Body Mass Index 35.15 05/26/2023 2:22 PM EST documented in this encounter Progress Notes * Dian Oquendo MD - 05/26/2023 2:28 PM EST ASSESSMENT / PLAN: [place] is a 57 year old male with PMHx JODEE no longer on CPAP / dyslipidemia - here for acute A/P: This is day 30 of illness and not improving - reviewed supportive care Discussed risks and benefits of proceeding with CS pill / if no improvement then proceed with ICS, at this time. Patient elects to proceed. Script sent and instructed on use. Urged to f/u with PCP / sleep med about reestablishing CPAP machine given risk of chronic lung microdamage over time if left untreated. Follow Up: Return for BP Check in 2 Weeks. | For: BP Check in 2 Weeks Post-viral cough syndrome (Primary) - predniSONE 20 MG Oral Tablet (Deltasone); Take 2 Tablets by mouth in the morning for 5 days. - Fluticasone-Salmeterol 100-50 MCG/ACT Inhalation Aerosol Powder Breath Activated (Advair Diskus);Inhale 1 Puff by mouth in the morning and 1 Puff before bedtime. Obstructive sleep apnea of adult Follow Up: Return for BP Check in 2 Weeks. | For: BP Check in 2 Weeks If needed, prefers contact by: Ok to leave message on phone: SUBJECTIVE: Nursing Notes: Cece Evans LPN 05/26/23 1425 Signed Chief Complaint Patient presents with Acute Coughing and shortness of breath and lots of mucus (yellow) sore throat from mucus going on for a month HPI: [place] is a 57 year old male. This is day 30 of illness - endorses cough / sob / post nasal drip / sinus drainage . Also says that had a flu like illness at the beginning for a few days. Did not check a covid test. 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 Pantoprazole Sodium 40 MG Oral Tablet Delayed Release (Protonix) Take 1 Tablet by mouth in the morning. 90 Tablet 3 Losartan Potassium 50 MG Oral Tablet (Cozaar) Take 1 Tablet by mouth in the morning. 100 Tablet 3 Tadalafil 5 MG Oral Tablet (Cialis) TAKE 1 TABLET BY MOUTH ONCE FOR ONE DOSE PRIOR TO INTERCOURSE NO MORE THAN 1 DOSE IN 24 HOURS 30 Tablet 5 predniSONE 20 MG Oral Tablet (Deltasone) Take 2 Tablets by mouth in the morning for 5 days. 10 Tablet 0 Fluticasone-Salmeterol 100-50 MCG/ACT Inhalation Aerosol Powder Breath Activated (Advair Diskus) Inhale 1 Puff by mouth in the morning and 1 Puff before bedtime. 60 Each 1 No current facility-administered medications for this visit. OBJECTIVE: BP 160/92 | Pulse 96 | Temp 36.5 C (97.7 F) (Infrared ) | Resp 18 | Ht 1.778 m (5' 10") | Wt 111.1 kg (245 lb) | SpO2 98% | BMI 35.15 kg/m | BSA 2.34 m Vitals reviewed and is normotensive / afebrile / and not tachycardic General: No acute distress. Neuro: Alert Pleasant & interactive. Respiratory: Good inspiratory effort, no labored breathing. CTAB CV: RRR no M R G HEENT: Conjunctivae appear clear. No swelling noted face or lips. Skin: No rash visible on exposed skin areas, normal coloration & appears dry. Psych: Normal affect. Fluent speech. Dian Oquendo MD [address] [address] There are no Patient Instructions on file for this visit. documented in this encounter Nursing Notes * Cece Evans LPN - 05/26/2023 2:20 PM EST Chief Complaint Patient presents with Acute Coughing and shortness of breath and lots of mucus (yellow) sore throat from mucus going on for a month documented in this encounter Plan of Treatment Upcoming Encounters Date Type Department Care Team (Late st Contact Info) Description 06/09/2023 4:00 PM EST Nurse Only Ancillary Department, [facility] [address] [place] [address] [facility] Nurse [address] [place] [address] Scheduled Procedures Name Priority Associated Diagnoses Date/Ti [...] (FLU shot) (#1) 2023 GFR 05/27/2023 05/27/2022, 01/2020, 04/18/2011, Additional history exists Lipid Panel 04/02/2025 [...] this encounter Medical Devices Implanted Type Area Brim Presser Device Identifier Shelf Expiration Date Model / Serial / Lot Dx Swivelock Sl 3.5x8.5mm X5 - [id number] Implanted:Qty: 1 on 06/01/2022 by Chucho Hopper MD at OR [facility] Left: Wrist [employer] 05/25/2026 [id number] / / [id number] documented as of this encounter Visit Diagnoses Diagnosis Post-viral cough syndrome- Primary Cough Obstructive sleep apnea of adult Obstructive sleep apnea (adult) (pediatric) documented in this encounter Care Teams Disability Benefits Specialist Relationship Specialty Start Date End Date Analy Betancourt DO [address] [place] [address] PCP - General Family Medicine 04/18/11 documented as of this encounter
--- OUTSIDE RECORDS SUMMARY | 2023-06-01 03:24 | External Medical Summary | Summary of Care ---
Author Name Unknown Organization [facility] Address [address] [place] [address] Phone [phone] Care Team Providers Care Operations Examiner Name Role Phone AsiaAnaly Loly CHAWLA Primary Care Provider [phone] Reason for Visit * Reason Comments Follow Up Med refill Encounter Details Date Type Department Care Team (Latest Contact Info) Description 04/27/2023 6:00 PM EDT Office Visit [facility] [address] [place] [address] Missy Corea MD [address] [place] [address] Physical exam, annual*; HTN, goal below 130/80; Hyperlipidemia, unspecified hyperlipidemia type; Screening for prostate cancer Allergies Active Allergy Reactions Criticality Noted Date Comments Tetanus Toxoid 09/26/2000 High Fever, swelling of arm. Missed one week of school documented as of this encounter (statuses as of 05/01/2023) Medications Medication Sig Dispensed Refills Start Date End Date Status Ibuprofen 200 MG Oral CapsuleIndicati ons:as needed Take 1 Capsule by mouth every 4 hours as needed. 0 Active Tadalafil 5 MG Oral Tablet (Cialis) TAKE 1 TABLET BY MOUTH ONCE FOR ONE DOSE PRIOR TO INTERCOURSE NO MORE THAN 1 DOSE IN 24 HOURS 30 Tablet 5 2 Active Pantoprazole Sodium 40 MG Oral Tablet Delayed Release (Protonix) Take 1 Tablet by mouth in the morning. 90 Tablet 3 3 Active Losartan Potassium 50 MG Oral Tablet (Cozaar)Indicat ions:HTN, goal below 130/80 Take 1 Tablet by mouth in the morning. 100 Tablet 3 3 Active Losartan Potassium 50 MG Oral Tablet (Cozaar)Indicat ions:HTN, goal below 130/80 Take 1 Tablet (50 mg) by mouth in the morning. 100 Tablet 3 2 04/27/20 23 Discontinued(Ref ill) HYDROcodone-Berry taminophen 5-325 MG Oral Tablet Take 1 Tablet by mouth every 4 hours as needed for Pain, Mild (May take 2 tabs for sever pain. Maximum daily dose is 10 tablets). 40 Tablet 0 2 04/27/20 23 Discontinued Pantoprazole Sodium 40 MG Oral Tablet Delayed Release (Protonix) Take 1 Tablet by mouth in the morning. 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, subsequent encounter 03/16/2022 Gastroesophageal reflux dise ase with esophagitis without hemorrhage 01/21/2021 Obstructive sleep apnea of adult 01/21/2021 Elevated blood pressure, situational 01/21/2021 Screen for colon cancer 02/24/2016 Dyslipidemia, goal LDL below 100 documented as of this encounter (statuses as of 05/01/2023) Resolved Problems Problem Noted Date Diagnosed Date [...] as of this encounter (statuses as of 05/01/2023) Immunizations Name Administration Dates Next Due PPD 02/22/2021,11/06/2015 documented as of this encounter Social History Tobacco Use Types Packs/Day Years Used Date Smoking Tobacco: Former Cigarettes Q uit: 06/26/1992 Smokeless Tobacco: Never Tobacco Cessation:Counseling Given: Not [...] Sign Reading Time Taken Comments Blood Pressure 136/90 04/27/2023 5:51 PM EDT Pulse 79 04/27/2023 5:51 PM EDT Temperature 36.7 C (98 F) 04/27/2023 5:51 PM EDT Respiratory Rate - - Oxygen Saturation 94% 04/27/2023 5:51 PM EDT Inhaled Oxygen Concentration - - Weight 109.6 kg (241 lb 11.2 oz) 04/27/2023 5:51 PM EDT Height - - Body Mass Index 34.18 07/15/2022 6:55 AM EST documented in this encounter Progress Notes * Missy Corea MD - 05/01/2023 12:56 PM EST [place] Millan is a 57 year old male. Chief Complaint Patient presents with Follow Up Med refill HPI: Here for annual check up Was called to make an annual appointment per PCP due to med refill and check up Known HTN, GERD Has been taking losartan, protonix Taking medication as prescribed, see med list. No medication side effects noted. Advised patient tokeep healthy life style, regular exercise with good diet, dina. low sodium diet. And also check BP at home too. Denies associated chest discomfort, chest heaviness, chest pressure, chest tightness, edema, palpitations and shortness of breath. 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 Tadalafil 5 MG Oral Tablet (Cialis) TAKE 1 TABLET BY MOUTH ONCE FOR ONE DOSE PRIOR TO INTERCOURSE NO MORE THAN 1 DOSE IN 24 HOURS 30 Tablet 5 Pantoprazole Sodium 40 MG Oral Tablet Delayed Release (Protonix) Take 1 Tablet by mouth in the morning. 90 Tablet 3 Losartan Potassium 50 MG Oral Tablet (Cozaar) Take 1 Tablet by mouth in the morning. 100 Tablet 3 No current facility-administered medications for this visit. Past Medical History: Diagnosis Date Dyslipidemia, goal LDL below 100 05/29 Injury of face and neck 08/11/01 C-spine injury; no fx; muscle spasm Insomnia SLEEP APNEA, UNSPECIFIED 01/05/2010 05/24/10 CPAP setting at 11cm Past Surgical History: Procedure Laterality Date COLONOSCOPY, DIAGNOSTIC (RECTUM) 10/20/2017 normal, repeat 10 yrs/COLONOSCOPY FLEXIBLE PROXIMAL DIAGNOSTIC performed by Kimberlee Thompson DO at ENDOSCOPY [facility] EGD, FLEXIBLE, DIAGNOSTIC 03/08/2021 acid reflux, hiatal hernia / ESOPHAGOGASTRODUODENOSCOPY (EGD), FLEXIBLE, TRANSORAL, DIAGNOSTIC performed by Aries Gallardo MD at ENDOSCOPY [facility] MISCELLANEOUS ORDER ([facility] ONLY) lumbar spinal fusion REMOVAL OF DEEP SUPPORT IMPLANT Left 07/15/2022 REMOVAL OF IMPLANT DEEP performed by Chucho Hopper MD at OR [facility] REMOVAL OF WRIST BONES Left 06/01/2022 CARPECTOMY ALL BONES performed by Chucho Hopper MD at [facility] REPAIR OF KNEE LIGAMENT/CAPSULE Knee Repair Cruciate Ligament REPAIR OF NASAL SEPTUM REPAIR/REVISE WRIST JOINT Left 06/01/2022 CAPSULORRHAPHY WRIST performed by Chucho Hopper MD at OR [facility] Review of patient's allergies indicates: Allergen Reactions Tetanus Toxoid High Fever, swelling of arm. Missed one week of school Family History Problem Relation Age of Onset Diabetes Aunt (Unspecified) Diabetes Uncle (Unspecified) Family Status Relation Status AUNT (Not Specified) UNCLE (Not Specified) Social History Socioeconomic History Marital status: Spouse name: Not on file Number of children: 1 Years of education: Not on file Highest education level: Not on file Occupational History Not on file Tobacco Use Smoking status: Former Types: Cigarettes Quit date: 06/26/1992 Years since quittin.8 Smokeless tobacco: Never Vaping Use Vaping Use: Never used Substance and Sexual Activity Alcohol use: Yes Comment: 2x week Drug use: No Sexual activity: Yes Partners: Female Other Topics Concern Not on file Social History Narrative Lives with Works at [employer] 2 daughter 14 and 6 Social Determinants of Health Financial Resource Strain: Not on file Food Insecurity: Not on file Transportation Needs: Not on file Physical Activity: Not on file Stress: Not on file Social Connections: Not on file Intimate Partner Violence: Not on file Housing Stability: Not on file Review of Systems Constitutional: Negative for activity change, appetite change, chills, diaphoresis, fatigue, fever and unexpected weight change. HENT: Negative for ear pain and hearing loss. Eyes: Negative for visual disturbance. Respiratory: Negative for cough, chest tightness, shortness of breath and wheezing. Cardiovascular: Negative for chest pain, palpitations and leg swelling. Gastrointestinal: Negative for abdominal distention and abdominal pain. Neurological: Negative for dizziness, light-headedness, numbness and headaches. Psychiatric/Behavioral: Negative for agitation and behavioral problems. Objective BP 136/90 | Pulse 79 | Temp 36.7 C (98 F) | Wt 109.6 kg (241 lb 11.2 oz) | SpO2 94% | BMI 34.18kg/m | BSA 2.34 m Physical Exam Constitutional: General: He is not in acute distress. Appearance: Normal appearance. He is not ill-appearing, toxic-appearing or diaphoretic. HENT: Head: Normocephalic and atraumatic. Nose: Nose normal. Eyes: Extraocular Movements: Extraocular movements intact. Cardiovascular: Rate and Rhythm: Normal rate and regular rhythm. Pulses: Normal pulses. Heart sounds: Normal heart sounds. No murmur heard. Pulmonary: Effort: Pulmonary effort is normal. No respiratory distress. Breath sounds: Normal breath sounds. No stridor. No wheezing, rhonchi or rales. Chest: Chest wall: No tenderness. Musculoskeletal: Right lower leg: No edema. Left lower leg: No edema. Neurological: General: No focal deficit present. Mental Status: He is alert and oriented to person, place, and time. Psychiatric: Behavior: Behavior normal. ASSESSMENT/PLAN: Physical exam, annual (Primary) - COMPREHENSIVE METABOLIC PANEL; Future; Expected date: 04/27/2023 - LIPID PANEL WITH DIRECT LDL IF TG IS HIGH; Future; Expected date: 04/27/2023 HTN, goal below 130/80 - Losartan Potassium 50 MG Oral Tablet (Cozaar); Take 1 Tablet by mouth in the morning. - COMPREHENSIVE METABOLIC PANEL; Future; Expected date: 04/27/2023 - LIPID PANEL WITH DIRECT LDL IF TG IS HIGH; Future; Expected date: 04/27/2023 Hyperlipidemia, unspecified hyperlipidemia type - COMPREHENSIVE METABOLIC PANEL; Future; Expected date: 04/27/2023 - LIPID PANEL WITH DIRECT LDL IF TG IS HIGH; Future; Expected date: 04/27/2023 Screening for prostate cancer - PSA; Future; Expected date: 04/27/2023 Other orders - Pantoprazole Sodium 40 MG Oral Tablet Delayed Release (Protonix); Take 1 Tablet by mouth in the morning. Refilled meds F/u blood tests Discussed with patient: -HEALTH PROMOTION: Adequate sleep (8-10 hours/night), regular exercise, balanced diet, dental care,limiting sedentary activities (TV, computer, Internet) -MENTAL HEALTH: Discuss feelings with an someone that they can trust -INJURY PREVENTION: Driving Safety, Seat Belts, Sun Safety, No Weapons, Conflict Resolution, Personal Safety -SUBSTANCE ABUSE: Tobacco, Drugs, Alcohol Missy Corea MD documented in this encounter Nursing Notes * Alma Garrett LPN - 04/27/2023 5:58 PM EDT The patient has been properly identified by confirmation of name and date of . Chief Complaint Patient presents with Follow Up Med refill While calling patient back to be seen he verbalized why was he here. He states that his medicationsare being held hostage and that he did not want to even be here but had to come in to get his medications refilled. Patient was told that sometimes for insurance purposes that patients have to be seen by a physical to keep getting prescribed medications. He states "this is bull-shit I don't want to be here." documented in this encounter Plan of Treatment Scheduled Orders Name Type Priority Associated Diagnoses Orde r Schedule COMPREHENSIVE METABOLIC PANEL Lab Routine HTN, goal below 130/80 Hyperlipidemia, unspecified hyperlipidemia type Physical exam, annual Expected: 04/27/2023 (Approximate), Expires: 04/26/2024 LIPID PANEL WITH DIRECT LDL IF TG IS HIGH Lab Routine HTN, goal below 130/80 Hyperlipidemia, unspecified hyperlipidemia type Physical exam, annual Expected: 04/27/2023, Expires: 04/27/2024 PSA Lab Routine Screening for prostate cancer Expected: 04/27/2023 (Approximate), Expires: 04/26/2024 Scheduled Procedures Name Priority Associated Diagnoses Date/Ti [...] this encounter Medical Devices Implanted Type Area Thread Spooler Device Identifier Shelf Expiration Date Model / Serial / Lot Dx Swivelock Sl 3.5x8.5mm X5 - [id number] Implanted:Qty: 1 on 06/01/2022 by Chucho Hopper MD at [facility] Left: Wrist [employer] 05/25/2026 [id number] / / [id number] documented as of this encounter Visit Diagnoses Diagnosis Physical exam, annual- Primary Routine general medical examination at a health care facility HTN, goal below 130/80 Unspecified essential hypertension Hyperlipidemia, unspecified hyperlipidemia type Screening for prostate cancer Special screening for malignant neoplasm of prostate documented in this encounter Care Teams Operations Examiner Relationship Specialty Start Date End Date Analy Betancourt DO [address] [place] [facility] [place] [facility] [place] [address] PCP - General Family Medicine 04/18/11 documented as of this encounter
--- OUTSIDE RECORDS SUMMARY | 2023-06-01 03:25 | External Medical Summary | Summary of Care ---
Author Name Unknown Organization [facility] Address [address] [place] [address] Phone [phone] Care Team Providers Care Nuclear Engineer Name Role Phone Vern Abarca DO Primary Care Provider + [phone] Reason for Visit * Reason Comments eRx-Medication Refill Encounter Details Date Type Department Care Team Description 01/20/2023 Refill [facility] [address] [place] [address] Vern Abarca DO [address] [place] [address] Allergies Active Allergy Reactions Severity Noted Date Comments Tetanus Toxoid 09/26/2000 High Fever, swelling of arm. Missed one week of school documented as of this encounter (statuses as of 01/23/2023) Medications Medication Sig Dispensed Refills Start Date End Date Status Ibuprofen 200 MG Oral CapsuleIndicatio ns:as needed Take 1 Capsule by mouth every 4 hours as needed. 0 Active Losartan Potassium 50 MG Oral Tablet (Cozaar)Indicati ons:HTN, goal below 130/80 Take 1 Tablet (50 mg) by mouth in the morning. 100 Tablet 3 05/04/2022 Active Tadalafil 5 MG Oral Tablet (Cialis) TAKE 1 TABLET BY MOUTH ONCE FOR ONE DOSE PRIOR TO INTERCOURSE NO MORE THAN 1 DOSE IN 24 HOURS 30 Tablet 5 05/30/2022 Active HYDROcodone-Acet aminophen 5-325 MG Oral Tablet Take 1 Tablet by mouth every 4 hours as needed for Pain, Mild (May take 2 tabs for sever pain. Maximum daily dose is 10 tablets). 40 Tablet 0 06/01/2022 Active Additional Information Patient not taking.Reported on 07/14/2022 Pantoprazole Sodium 40 MG Oral Tablet Delayed Release (Protonix) TAKE 1 TABLET BY MOUTH ONCE DAILY BEFORE BREAKFAST 30 Tablet 0 01/23/2023 Active Pantoprazole Sodium 40 MG Oral Tablet Delayed Release (Protonix) TAKE 1 TABLET BY MOUTH ONCE DAILY BEFORE BREAKFAST 30 Tablet 0 12/26/2022 3 Discontinued documented as of this encounter (statuses as of 01/23/2023) Active Problems Problem Noted Date Rotary subluxation of scaphoid bone of l eft wrist, subsequent encounter 03/16/2022 Gastroesophageal reflux disease with eso phagitis without hemorrhage 01/21/2021 Obstructive sleep apnea of adult 021 Elevated blood pressure, situational Screen for colon cancer 02/24/2016 Dyslipidemia, goal LDL below 100 documented as of this encounter (statuses as of 01/23/2023) Resolved Problems Problem Noted Date Resolved Date Routine medical exam 02/24/2016 06/11/2018 Screening for cardiovascular condition 6 06/11/2018 Screening for diabetes mellitus 02/24/2016 06/11/2018 Screening for prostate cancer 02/24/2016 Erectile dysfunction 02/24/2016 06/11/2018 Stye 02/24/2016 06/11/2018 Skin tag 02/24/2016 06/11/2018 Overweight (BMI 25.0-29.9) 10/25/201106/11 Overview: bmi= 25.79 10/25/11 Myalgia and myositis 10/25/2011 06/11/2018 Acute URI 10/25/2011 06/02/2014 Cough 10/25/2011 06/11/2018 Respiratory abnormality 10/25/2011 06/11/20 18 Overview: ICD-10 update of inactive term Sleep apnea 01/05/2010 06/11/2018 Overview: 05/24/10 CPAP setting at 11cm documented as of this encounter (statuses as of 01/23/2023) Immunizations Name Administration Dates Next Due PPD 02/22/2021,11/06/2015 documented as of this encounter Social History Tobacco Use Types Packs/Day Years Used Date Smoking Tobacco: Former Cigarettes Q uit: 06/26/1992 Smokeless Tobacco: Never Alcohol Use Standard Drinks/Week Comments Yes 0 (1 standard drink = 0.6 oz pur e alcohol) 2x week Sex Assigned at Date Recorded Not on file Job Start Date Occupation Industry Not on file Not on file Not on file documented as of this encounter Miscellaneous Notes * Telephone Encounter - Vern Abarca DO - 01/23/2023 12:28 PM EDTSigned Prescriptions: Disp Refills Pantoprazole Sodium 40 MG Oral Tablet Keke*30 Tab*0 Sig: TAKE 1 TABLET BY MOUTH ONCE DAILY BEFORE BREAKFAST Authorizing Provider: VERN ABARCA * Telephone Encounter - STEFAN Deluna Tech - 01/23/2023 9:13 AM EDTPending Prescriptions: Disp Refills Pantoprazole Sodium 40 MG Oral Tablet Keke*30 Tab*0 Sig: TAKE 1 TABLET BY MOUTH ONCE DAILY BEFORE BREAKFAST * Telephone Encounter - STEFAN Deluna - 01/23/2023 9:08 AM EDT Pharmacy calling to request a refill on pantoprazole. Medication was last prescribed by gastro but patient is asking if PCP can take over the medication. Please advise if this is appropriate and iesha Lockwood [facility] [address] [place] [address] [address] if agreeable. Thank You, Sachi Alvarez [facility] Health Management Consultant III Centralized Clinical Pharmacy Services (CCPS) (Formerly Telepharmacy) 01/23/2023, 9:08 AM documented in this encounter Plan of Treatment [...] Zoster Vaccines (1 of 2) 11/04/2015 Depression Screening, Annual for Pts 12 and Over 06/11/2019 06/11/2018 Influenza Vaccine (FLU shot) (#1) [...] this encounter Medical Devices Implanted Type Area Hyster Machine Operator Device Identifier Shelf Expiration Date Model / Serial / Lot Dx Swivelock Sl 3.5x8.5mm X5 - [id number] Implanted:Qty: 1 on 06/01/2022 by Chucho Hopper MD at OR [facility] Left: Wrist [employer] 05/25/2026 [id number] / / [id number] documented as of this encounter Care Teams Nuclear Engineer Relationship Specialty Start Date End Date Vern Abarca DO [address] [place] [address] PCP - General Family Medicine 04/18/11 documented as of this encounter
--- OUTSIDE RECORDS SUMMARY | 2023-06-01 03:25 | External Medical Summary | Summary of Care ---
Author Name Unknown Organization [facility] Address [address] [place] [address] Phone [phone] Care Team Providers Care Complaint Investigations Officer Name Role Phone Vern Abarca DO Primary Care Provider + [phone] Reason for Visit * Reason Comments eRx-Medication Refill Encounter Details Date Type Department Care Team Description 12/23/2022 Refill Gastroenterology, [facility] [address] [facility] [place] [address] Vern Abarca DO [address] [place] [id number] Allergies Active Allergy Reactions Severity Noted Date Comments Tetanus Toxoid 09/26/2000 High Fever, swelling of arm. Missed one week of school documented as of this encounter (statuses as of 12/26/2022) Medications Medication Sig Dispensed Refills Start Date [...] DAILY BEFORE BREAKFAST 30 Tablet 0 12/26/2022 Active Pantoprazole Sodium 40 MG Oral Tablet Delayed Release (Protonix) Take 1 Tablet by mouth daily before breakfast. 30 Tablet 5 06/30/2022 3 Discontinued documented as of this encounter (statuses as of 12/26/2022) Active Problems Problem Noted Date Rotary subluxation of scaphoid bone of l eft wrist, subsequent encounter 03/16/2022 Gastroesophageal reflux disease with eso phagitis without hemorrhage 01/21/2021 Obstructive sleep apnea of adult 021 Elevated blood pressure, situational Screen for colon cancer 02/24/2016 Dyslipidemia, goal LDL below 100 documented as of this encounter (statuses as of 12/26/2022) Resolved Problems Problem Noted Date Resolved Date [...] as of this encounter (statuses as of 12/26/2022) Immunizations Name Administration Dates Next Due PPD [...] Telephone Encounter - Vern Abarca DO - 12/26/2022 10:41 AM EDTSigned Prescriptions: Disp Refills Pantoprazole Sodium 40 MG Oral Tablet Keke*30 Tab*0 Sig: TAKE 1 TABLET BY MOUTH ONCE DAILY BEFORE BREAKFAST Authorizing Provider: VERN ABARCA * Telephone Encounter - STEFAN Deluna - 12/23/2022 3:24 PM EDTPending Prescriptions: Disp Refills Pantoprazole Sodium 40 MG Oral Tablet Keke*30 Tab*0 Sig: TAKE 1 TABLET BY MOUTH ONCE DAILY BEFORE BREAKFAST * Telephone Encounter - STEFAN Deluna - 12/23/2022 3:24 PM EDT Patient is up to date for office visits. Pending Prescriptions: Disp Refills Pantoprazole Sodium 40 MG Oral Tablet Del*30 Tab*0 Sig: TAKE 1 TABLET BY MOUTH ONCE DAILY BEFORE BREAKFAST Last Visit: Visit date not found (in office), Visit date not found (telemedicine) Next Visit: Visit date not found If no future appointments scheduled, and last appointment is greater than a year ago, please schedule patient for a follow-up appointment Last date the medication was ordered: 06/30 Pharmacy: [facility] [address] [address] [address] Is this request for a controlled substance?No it is not controlled. Urine Drug Screen:No results found for this or any previous visit. Patient Phone Numbers Labs: Lab Results Component Value Date/Time CREAT 1.2 05/27/2022 02:22 PM CREAT 1.2 04/02/2020 07:10 AM POTASSIUM 4.2 05/27/2022 02:22 PM POTASSIUM 4.8 04/02/2020 07:10 AM TSH 0.90 04/18/2011 02:48 PM LDLCALC 133 (H) 04/02/2020 07:10 AM LDLDIRECT NOT APPLICABLE 04/02/2020 07:10 AM ALT 24 07/22/2004 07:47 AM documented in this encounter Plan of [...] Over 06/11/2019 06/11/2018 Influenza Vaccine (FLU shot) (Season Ended) 2023 GFR 05/27/2023 05/27/2022, 10/0 01/2020, 04/18/2011, Additional history exists Lipid Panel [...] this encounter Medical Devices Implanted Type Area Electrical Journeyman Device Identifier Shelf Expiration Date Model / Serial / Lot Dx Regina Sl 3.5x8.5mm X5 - [id number] Implanted:Qty: 1 on 06/01/2022 by Chucho Hopper MD at OR [facility] Left: Wrist [employer] 05/25/2026 [id number] / / [id number] documented as of this encounter Care Teams Complaint Investigations Officer Relationship Specialty Start Date End Date Vern Abarca, [address] [place] [address] PCP - General Family Medicine 04/18/11 documented as of this encounter
--- OUTSIDE RECORDS SUMMARY | 2023-06-01 03:25 | External Medical Summary | Summary of Care ---
Author Name Unknown Organization [facility] Address [address] [place] [address] Phone [phone] Care Team Providers Care Cashier Name Role Phone Vern Abarca DO Primary Care Provider [phone] Reason for Visit * Reason Comments eRx-Medication Refill Encounter Details Date Type Department Care Team Description 03/27/2023 Refill [facility] [address] [place] [address] Vern Abarca DO [address] [place] [address] Allergies Active Allergy Reactions Severity Noted Date Comments Tetanus Toxoid 09/26/2000 High Fever, swelling of arm. 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, subsequent encounter 03/16/2022 Gastroesophageal reflux disease with eso phagitis without hemorrhage 01/21/2021 Obstructive sleep apnea of adult 021 Elevated blood pressure, situational Screen for colon cancer 02/24/2016 Dyslipidemia, goal LDL below 100 documented as of this encounter (statuses as of 03/31/2023) Resolved Problems Problem Noted Date Resolved Date [...] as of this encounter (statuses as of 03/31/2023) Immunizations Name Administration Dates Next Due PPD [...] Telephone Encounter - Vern Abarca DO - 03/31/2023 8:37 AM EDTSigned Prescriptions: Disp Refills Pantoprazole Sodium 40 MG Oral Tablet Keke*30 Tab*0 Sig: TAKE 1 TABLET BY MOUTH ONCE DAILY BEFORE BREAKFAST Authorizing Provider: VERN ABARCA * Telephone Encounter - Ethel Finn LPN - 03/30/2023 4:28 PM EDTPending Prescriptions: Disp Refills Pantoprazole Sodium 40 MG Oral Tablet Keke*30 Tab*0 Sig: TAKE 1 TABLET BY MOUTH ONCE DAILY BEFORE BREAKFAST * Telephone Encounter - Yakov Montalvo [facility] - 03/28/2023 4:57 PM EDT Pending Prescriptions: Disp Refills Pantoprazole Sodium 40 MG Oral Tablet Keke*30 Tab*0 Sig: TAKE 1 TABLET BY MOUTH ONCE DAILY BEFORE BREAKFAST * Telephone Encounter - Yakov Montalvo CPhT - 03/28/2023 4:56 PM EDT Received message from [facility] regarding patient needing appointment. Placed call to patient to advise. Pt was NOT agreeable. Routing to clinic nurses for further review. Please advise. Thank you, Chava Montalvo ([facility]) Reconciling Clerk III Centralized Clincal Pharmacy Services (CCPS) (formerly Telepharmacy) 03/28/2023, 4:56 PM * Telephone Encounter - Nemo Abel [facility] - 03/28/2023 7:40 AM EDTPending Prescriptions: Disp Refills Pantoprazole Sodium 40 MG Oral Tablet Keke*30 Tab*0 Sig: TAKE 1 TABLET BY MOUTH ONCE DAILY BEFORE BREAKFAST * Telephone Encounter - Nemo Abel [facility] - 03/28/2023 7:39 AM EDT Second attempt. Please contact patient so that an appointment can be scheduled with his PRIMARY CARE provider before this refill can be authorized. After contacting patient, please forward request to Vern Abarca DO. Last Visit: 10/21/2022 (ACUTE), Visit date not found (telemedicine) Next Visit: Visit date not found Thanks, Nemo Abel Clinical Pharmacist Centralized Clinical Pharmacy Services (CCPS) (Formerly Telepharmacy) [phone] 03/28/2023, 7:39 AM documented in this encounter Plan of [...] this encounter Medical Devices Implanted Type Area Aircraft Technician Device Identifier Shelf Expiration Date Model / Serial / Lot Dx Swivelock Sl 3.5x8.5mm X5 - [id number] Implanted:Qty: 1 on 06/01/2022 by Chucho Hopper MD at OR [facility] Left: Wrist [employer] 05/25/2026 [id number] / / [id number] documented as of this encounter Care Teams Cashier Relationship Specialty Start Date End Date Vern Abarca, DO [address] [place] [address] PCP - General Family Medicine 04/18/11 documented as of this encounter
--- OUTSIDE RECORDS SUMMARY | 2023-06-01 03:25 | External Medical Summary | Summary of Care ---
Author Name Unknown Organization [facility] Address [address] [place] [address] Phone [phone] Care Team Providers Care Construction Equipment Overhauler Name Role Phone Vern Abarca DO Primary Care Provider + [phone] Reason for Visit * Reason Onset Date Comments Medication Refill 04/21/2023 Encounter Details Date Type Department Care Team (Late st Contact Info) Description 04/21/2023 Refill [facility] [address] [place] [address] Vern Abarca [address] [place] [address] Allergies Active Allergy Reactions Criticality Noted Date Comments Tetanus Toxoid 09/26/2000 High Fever, swelling of arm. Missed one week of school documented as of this encounter (statuses as of 04/24/2023) Medications Medication Sig Dispensed Refills Start Date [...] mouth in the morning. 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, subsequent encounter 03/16/2022 Gastroesophageal reflux dise ase with esophagitis without hemorrhage 01/21/2021 Obstructive sleep apnea of adult 01/21/2021 Elevated blood pressure, situational 01/21/2021 Screen for colon cancer 02/24/2016 Dyslipidemia, goal LDL below 100 documented as of this encounter (statuses as of 04/24/2023) Resolved Problems Problem Noted Date Diagnosed Date [...] as of this encounter (statuses as of 04/24/2023) Immunizations Name Administration Dates Next Due PPD [...] Telephone Encounter - Vern Abarca DO - 04/24/2023 1:46 PM EDTSigned Prescriptions: Disp Refills Pantoprazole Sodium 40 MG Oral Tablet Keke*30 Tab*0 Sig: Take 1 Tablet by mouth in the morning. Authorizing Provider: VERN ABARCA * Telephone Encounter - Anahi Gutierrez OSA - 04/21/2023 1:02 PM EDTPending Prescriptions: Disp Refills Pantoprazole Sodium 40 MG Oral Tablet Keke*30 Tab*0 * Telephone Encounter - Anahi Gutierrez OSA - 04/21/2023 1:02 PM EDT Received message from [facility] regarding patient needing appointment. Placed call to patient to advise. Left message on voicemail to call back and schedule appointment. Thank you, Anahi Gutierrez Tailer Off Centralized Clinical Pharmacy Services (CCPS) 04/21/2023,1:02 PM * Telephone Encounter - Donell Duenas [facility] - 04/21/2023 12:48 PM EDT Pending Prescriptions: Disp Refills Pantoprazole Sodium 40 MG Oral Tablet Keke*30 Tab*0 * Telephone Encounter - Donell Duenas [facility] - 04/21/2023 12:47 PM EDT Please contact patient so that an appointment can be scheduled with his PRIMARY CARE provider before this refill can be authorized. After contacting patient, please forward request to Evelyne Abarca DO. Last Visit: 10/21/2022 (in office)Acute. Visit date not found (telemedicine) Next Visit: Visit date not found Thanks, Donell Duenas, PharmD Clinical Pharmacist Centralized Clinical Pharmacy Services(formerly telepharmacy) [phone] 04/21/2023, 12:47 PM documented in this encounter Plan of Treatment Upcoming Encounters Date Type Department Care Team (Late st Contact Info) Description 04/27/2023 6:00 PM EDT Office Visit [address] [address] Missy Corea MD [address] [facility] [place] [id number] Scheduled Procedures Name Priority Associated Diagnoses Date/Ti [...] this encounter Medical Devices Implanted Type Area Mapping Supervisor Device Identifier Shelf Expiration Date Model / Serial / Lot Dx Regina Sl 3.5x8.5mm X5 - [id number] Implanted:Qty: 1 on 06/01/2022 by Chucho Hopper MD at OR [facility] Left: Wrist [employer] 05/25/2026 [id number] / / [id number] documented as of this encounter Care Teams Construction Equipment Overhauler Relationship Specialty Start Date End Date Vern Abarca DO [address], [place] [phone] PCP - General Family Medicine 04/18/11 documented as of this encounter
--- OUTSIDE RECORDS SUMMARY | 2023-06-01 03:25 | External Medical Summary | Summary of Care ---
Author Name Unknown Organization [facility] Address [address] [place] [address] Phone [phone] Care Team Providers Care Electronic Technologist Name Role Phone Analy Betancourt DO Primary Care Provider Encounter Details Date Type Department Care Team (Late st Contact Info) Description 04/27/2023 Telephone [facility] [address] [place] [address] Analy Betancourt DO [address] [place] [address] Allergies Active Allergy Reactions Criticality Noted Date Comments Tetanus Toxoid 09/26/2000 High Fever, swelling of arm. Missed one week of school documented as of this encounter (statuses as of 05/01/2023) Medications Medication Sig Dispensed Refills Start Date End Date Status Ibuprofen 200 MG Oral CapsuleIndications :as needed Take 1 Capsule by mouth every 4 hours as needed. 0 Active Tadalafil 5 MG Oral Tablet (Cialis) TAKE 1 TABLET BY MOUTH ONCE FOR ONE DOSE PRIOR TO INTERCOURSE NO MORE THAN 1 DOSE IN 24 HOURS 30 Tablet 5 05/30/2022 Active Pantoprazole Sodium 40 MG Oral Tablet Delayed Release (Protonix) Take 1 Tablet by mouth in the morning. 90 Tablet 3 04/27/2023 Active Losartan Potassium 50 MG Oral Tablet (Cozaar)Indication s:HTN, goal below 130/80 Take 1 Tablet by mouth in the morning. 100 Tablet 3 04/27/2023 Active documented as of this encounter (statuses [...] encounter Miscellaneous Notes * Telephone Encounter - Alla Medina - 04/27/2023 5:51 PM EDT 04/27/23 Pt checked in, but was very angry. Pt had a copay, but stated he should not have to pay for it due to he did not want the appt. We forced him to have the appt. We are keeping his meds hostage unless he has the appt? He was very angry. I told him I do not make the rules regarding meds, but I do know that unless you are seen by your PCP within a certain amount of time, a script for refill on the meds cannot be given. Those are the guidelines. He didn't care, he was upset we were holding his meds hostage unless he caome for the apt. He is now being rude with the nurse checking him in as well. He stated once again, he is here against his will. documented in this encounter Plan of Treatment [...] (FLU shot) (#1) 2023 GFR 05/27/2023 05/27/2022, 10/0 01/2020, 04/18/2011, [...] this encounter Medical Devices Implanted Type Area Telecommunications Clerk Device Identifier Shelf Expiration Date Model / Serial / Lot Dx Swivelock Sl 3.5x8.5mm X5 - [id number] Implanted:Qty: 1 on 06/01/2022 by Chucho Hopper MD at OR [facility] Left: Wrist [employer] 05/25/2026 [id number] / / [id number] documented as of this encounter Care Teams Electronic Technologist Relationship Specialty Start Date End Date Analy Betancourt DO [address], [place] [phone] PCP - General Family Medicine 04/18/11 documented as of this encounter
--- OUTSIDE RECORDS SUMMARY | 2023-06-01 03:25 | External Medical Summary | Summary of Care ---
Author Name Unknown Organization [facility] Address [address] [place] [address] Phone [phone] Care Team Providers Care Bowling Ball Finisher Name Role Phone Vern Abarca DO Primary Care Provider + [phone] Reason for Visit * Reason Comments eRx-Medication Refill Encounter Details Date Type Department Care Team Description 02/20/2023 Refill [facility] [address] [place] [address] Vern Abarca DO [address] [place] [address] Allergies Active Allergy Reactions Severity Noted Date Comments Tetanus Toxoid 09/26/2000 High Fever, swelling of arm. 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, subsequent encounter 03/16/2022 Gastroesophageal reflux disease with eso phagitis without hemorrhage 01/21/2021 Obstructive sleep apnea of adult 021 Elevated blood pressure, situational Screen for colon cancer 02/24/2016 Dyslipidemia, goal LDL below 100 documented as of this encounter (statuses as of 02/21/2023) Resolved Problems Problem Noted Date Resolved Date [...] as of this encounter (statuses as of 02/21/2023) Immunizations Name Administration Dates Next Due PPD [...] encounter Miscellaneous Notes * Telephone Encounter - STEFAN Yan Tech - 02/21/2023 12:47 PM EDT Received message from [facility] regarding patient needing appointment. Placed call to patient to advise. Left message on voicemail to call back and schedule appointment. Thank you, Breanne Griffin Motorboat Mechanic Helper [employer] 02/21/2023, 12:47 PM * Telephone Encounter - Scott Whiting [facility] - 02/21/2023 12:04 PM EDTSigned Prescriptions: Disp Refills Pantoprazole Sodium 40 MG Oral Tablet Keke*30 Tab*0 Sig: TAKE 1 TABLET BY MOUTH ONCE DAILY BEFORE BREAKFAST Authorizing Provider: VERN ABARCA Ordering User: SCOTT WHITING * Telephone Encounter - Scott Whiting [facility] - 02/21/2023 12:04 PM EDT Please contact patient so that an appointment can be scheduled with his PRIMARY CARE provider. Refill authorized to hold patient over in the mean time. Last Visit: 10/21/2022 ACUTE (in office), Visit date not found (telemedicine) Next Visit: Visit date not found Scott Thacker, PharmD Clinical Pharmacist Centralized Clinical Pharmacy Services (CCPS) (formerly Telepharmacy) [phone] 02/21/2023 12:04 PM documented in this encounter Plan of [...] this encounter Medical Devices Implanted Type Area Patrol Mother Device Identifier Shelf Expiration Date Model / Serial / Lot Dx Swivelock Sl 3.5x8.5mm X5 - [id number] Implanted:Qty: 1 on 06/01/2022 by Chucho Hopper MD at OR [facility] Left: Wrist [employer] 05/25/2026 [id number] / / [id number] documented as of this encounter Care Teams Bowling Ball Finisher Relationship Specialty Start Date End Date Vern Abarca, DO [address] [place] [address] PCP - General Family Medicine 04/18/11 documented as of this encounter
[2023-06-01 03:38] LABS: Basophils # (auto) 0.04 K/uL (0.00-0.20); Basophils % (auto) 0.7 %; Eosinophils # (auto) 0.07 K/uL (0.00-0.50); Eosinophils % (auto) 1.2 %; Immature Granulocytes # (auto) 0.02 K/uL (0.01-0.20); Immature Granulocytes % (auto) 0.4 %; Lymphocytes # (auto) 2.47 K/uL (1.20-3.40); Lymphocytes % (auto) 43.3 %; Monocytes # (auto) 0.38 K/uL (0.11-0.59); Monocytes % (auto) 6.7 %; Neutrophils # (auto) 2.72 K/uL (1.40-6.50); Neutrophils % (auto) 47.7 %
[2023-06-01] MEDS: ACETAMINOPHEN 325 MG TAB PO PRN ×4 (03:48→23:35)
[2023-06-01 03:57] LABS: ANTI-Xa, UFH(UnfractionatedHep 0.57 IU/ml (0.3-0.7)
[2023-06-01] MEDS: dilTIAZem HCL 125 MG in DEXTROSE 5% 100 ML IV SCH (04:51)
[2023-06-01] MEDS: LOSARTAN POTASSIUM 50 MG TAB PO SCH (08:04)
[2023-06-01] MEDS: PANTOprazole 40 MG TAB PO SCH (08:04)
--- OUTSIDE RECORDS SUMMARY | 2023-06-01 09:02 | External Medical Summary | Summary of Care ---
Author Name Unknown Organization [facility] Address [address] [address] Phone [phone] Care Team Providers Care Mechanical Assembly Technician Name Role Phone Analy Betancourt DO Primary Care Provider + [phone] Reason for Referral * Precert (Within 10 days (routine)) - Pending Review Specialty Diagnoses / Procedures Referred By Lisa mathew Referred To Contact Cardiac Studies Diagnoses Palpitations REYNA (dyspnea on exertion) Subacute cough Procedures ECHO, COMPLETE (2D), TRANS-THORACIC Analy Betancourt DO [address] [place] [address] Referral ID Status Reason Start Date Expiration Date Visits Requested Visits Authorized [id number] Pending Review Precert 05/31/2023 999 999 Reason for Visit * Reason Comments Follow Up Trouble breathing tran s been going on for months now Was seen Monday of last week the medicine did not seem to help at all. Unable to taste or smell starting yesterday today was beginning to be able to taste and smell a small amount Encounter Details Date Type Department Care Team (Late st Contact Info) Description 05/31/2023 12:50 PM EST Office Visit [facility] [address] [facility] [place] [phone] Analy Betancourt DO [address] [facility] [place] [phone] Tachycardia*; Palpitations; REYNA (dyspnea on exertion); Subacute cough Allergies Active Allergy Reactions Criticality Noted Date Comments Tetanus Toxoid 09/26/2000 High Fever, swelling of arm. Missed one week of school documented as of this encounter (statuses as of 05/31/2023) Medications Medication Sig Dispensed Refills Start Date [...] before bedtime. 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, subsequent encounter 03/16/2022 Gastroesophageal reflux dise ase with esophagitis without hemorrhage 01/21/2021 Obstructive sleep apnea of adult 01/21/2021 Elevated blood pressure, situational 01/21/2021 Screen for colon cancer 02/24/2016 Dyslipidemia, goal LDL below 100 documented as of this encounter (statuses as of 05/31/2023) Resolved Problems Problem Noted Date Diagnosed Date [...] as of this encounter (statuses as of 05/31/2023) Immunizations Name Administration Dates Next Due PPD 02/22/2021,11/06/2015 documented as of this encounter Social History Tobacco Use Types Packs/Day Years Used Date Smoking Tobacco: Former Cigarettes Q uit: 06/26/1992 Passive Smoke Exposure: Past Smokeless Tobacco: Never Alcohol Use Standard Drinks/Week [...] Sign Reading Time Taken Comments Blood Pressure 132/80 05/31/2023 12:58 PM EST Pulse 125 05/31/2023 12:58 PM EST Temperature 35.9 C (96.6 F) 05/31/2023 12:[address] Respiratory Rate 20 05/31/2023 12:58 PM EST Oxygen Saturation 97% 05/31/2023 12:58 PM EST Inhaled Oxygen Concentration - - Weight 109.5 kg (241 lb 8 oz) 05/31/2023 12:58 P M EST Height - - Body Mass Index 34.65 05/26/2023 2:22 PM EST documented in this encounter Progress Notes * Analy Betancourt, - 05/31/2023 1:29 PM EST Subjective: [place] is a 57 year old male. Chief Complaint Patient presents with Follow Up Trouble breathing has been going on for months now Was seen Monday of last week the medicine did not seem to help at all. Unable to taste or smell starting yesterday today was beginning to be able to taste and smell a small amount HPI: 57 Yr old male here today for ongoing coughing, shortness of breath and feels like he cannot get his breath even when talking. He cannot taste or smell anything. This just started yesterday. Buthe reports not feeling well over 1 month. At times notices that his hands are shaking. He was seen on Monday and was given prednisone and this has not helped at all. No CXR completed. Hewas given an inhaler (advair) he has not taken this yet. 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 Review of patient's allergies indicates: Allergen Reactions Tetanus Toxoid High Fever, swelling of arm. Missed one week of school Objective: BP 132/80 | Pulse 125 | Temp 35.9 C (96.6 F) (Temporal Artery) | Resp 20 | Wt 109.5 kg (241 lb 8 oz) | SpO2 97% | BMI 34.65 kg/m | BSA 2.33 m Physical Exam: General: alert, ill looking, pale, and coughing. Oropharynx: no exudate, no erythema, lips, buccal mucosa, and tongue normal, and mucous membranes are moist Heart: tachycardic. no murmur, and no gallops Lungs: positive findings: tachypnea, wheezing diffusely EKG rate at 162, atrial fibrillation vs Atrial flutter. ASSESSMENT/PLAN: Tachycardia (Primary) --abnml EKG, due to rate uncontrolled will send him to ER for immediate labs, IV fluid, and medicalintervention. Canceled labs I did order a viral swab I will try canceling this as I am sure this will get checked in ER. Concern for a viral carditis No hx of atrial fibrillation in the past. Palpitations - EKG; Future; Expected date: 05/31/2023 - EKG - ECHO, COMPLETE (2D), TRANS-THORACIC; Future; Expected date: 05/31/2023 REYNA (dyspnea on exertion) - RESPIRATORY PATHOGEN PANEL, PCR; Future; Expected date: 05/31/2023 - ECHO, COMPLETE (2D), TRANS-THORACIC; Future; Expected date: 05/31/2023 - RESPIRATORY PATHOGEN PANEL, PCR - CBC; Future; Expected date: 05/31/2023 - BASIC METABOLIC PANEL; Future; Expected date: 05/31/2023 - HEPATIC FUNCTION PANEL; Future; Expected date: 05/31/2023 Subacute cough - RESPIRATORY PATHOGEN PANEL, PCR; Future; Expected date: 05/31/2023 - XR CHEST 2 VIEWS - Azithromycin 250 MG Oral Tablet (Zithromax Z-Colby); Take two tablets by mouth on first day, then 1tablet daily until gone - ECHO, COMPLETE (2D), TRANS-THORACIC; Future; Expected date: 05/31/2023 - RESPIRATORY PATHOGEN PANEL, PCR - CBC; Future; Expected date: 05/31/2023 - BASIC METABOLIC PANEL; Future; Expected date: 05/31/2023 - HEPATIC FUNCTION PANEL; Future; Expected date: 05/31/2023 Check-out note: Labs CXR Echocardiogram. Cancel above, pt called girlfriend and she will transport him to the ER. Analy Betancourt DO documented in this encounter Nursing Notes * Cece Evans LPN - 05/31/2023 1:01 PM EST Chief Complaint Patient presents with Follow Up Trouble breathing has been going on for months now Was seen Monday of last week the medicine did not seem to help at all. Unable to taste or smell starting yesterday today was beginning to be able to taste and smell a small amount documented in this encounter Plan of Treatment Upcoming Encounters Date Type Department Care Team (Late st Contact Info) Description 06/09/2023 4:00 PM EST Nurse Only Ancillary Department, [address] [address] [place] Nurse [facility] [place] [address] Pending Results Name Type Priority Associated Diagnoses Date /Time RESPIRATORY PATHOGEN PANEL, PCR Lab Routine REYNA (dyspnea on exertion) Subacute cough 05/31/2023 1:47 PM EST Scheduled Orders Name Type Priority Associated Diagnoses Orde r Schedule EKG EKG Routine Palpitations Expected: 05/31/2023 (Approximate), Expires: 07/01/2024 ECHO, COMPLETE (2D), TRANS-THORACIC Echocardiology Routine Palpitations REYNA (dyspnea on exertion) Subacute cough Expected: 05/31/2023 (Approximate), Expires: 05/30/2024 HEPATIC FUNCTION PANEL Lab Routine REYNA (dyspnea on exertion) Subacute cough Expected: 05/31/2023 (Approximate), Expires: 05/30/2024 Scheduled Procedures Name Priority Associated Diagnoses Date/Ti [...] this encounter Medical Devices Implanted Type Area Torpedo Worker Device Identifier Shelf Expiration Date Model / Serial / Lot Dx Swivelock Sl 3.5x8.5mm X5 - [id number] Implanted:Qty: 1 on 06/01/2022 by Chucho Hopper MD at [facility] Left: Wrist [employer] 05/25/2026 [id number] / / [id number] documented as of this encounter Visit Diagnoses Diagnosis Tachycardia- Primary Tachycardia, unspecified Palpitations REYNA (dyspnea on exertion) Other dyspnea and respiratory abnormality Subacute cough Cough documented in this encounter Care Teams Mechanical Assembly Technician Relationship Specialty Start Date End Date Analy Betancourt DO [address] [facility] [place] [id number] PCP - General Family Medicine 04/18/11 documented as of this encounter"
[2023-06-01] MEDS: FLUTICASONE/VILANTEROL 100/25MCG 14 PUFFS/INHALER INH SCH (09:33)
[2023-06-01] MEDS: HEPARIN SODIUM/DEXTROSE 25,000 UNITS/500 ML BAG IV SCH (11:55)
--- NOTE | 2023-06-01 13:08 | Cardiology Consultation ---
Date of Consultation June 01, 2023 Assessment & Plan (1) Atrial fibrillation with rapid ventricular response: (2) HTN (hypertension): (3) COVID-19: Plan 57-year-old male presented yesterday to primary care office to follow-up with persistent symptoms of respiratory distress and cough following acute viral syndrome. Patient and admit the admitted where heart rate had been elevated and pounding at times. On evaluation patient found to be in atrial fibrillation with rapid ventricular response, by description greater than 1 weeks duration Heart rates have slowed since ER presentation with IV diltiazem EKG without ischemia or injury pattern Cardiac enzymes normal Echocardiogram with normal LV systolic function without wall motion abnormality Chest CT without pulmonary embolus but notable for pneumonitis Impression: 1. Atrial fibrillation with rapid ventricular response: Discussed atrial fibrillation in detail with patient and . Heart rate is slowing but on IV diltiazem. Will discontinue IV diltiazem and begin beta-eulogio initially with metoprolol tartrate 50 mg twice daily. Continue anticoagulation with IV heparin with plans to transition to Eliquis for at least 3060 days management depending on clinical course. [id number] 2 score of 1 only No plans for acute cardioversion given minimal symptoms and rates coming under control. Duration appears greater than 1 week by patient and 's history 2. Hypertension/hypertensive urgency: Agree with continuing losartan in addition to beta-eulogio added above. Mild aortic root enlargement noted on CT. Will continue topical nitrates initially. No signs of heart failure on physical examination or x-ray. Will require initiation of treatment of underlying sleep apnea. Recent prednisone may have resulted in an increase in blood pressure 3. Acute viral syndrome/COVID pneumonitis per primary service 4. Obstructive sleep apnea: Full assessment and treatment warranted History of Present Illness Reason for Consultation: Atrial fibrillation with rapid response, COVID-positive Requesting Physician: Dr. Eubanks Attending Physician: Blas Eubanks MD History of Present Illness The patient is a 57-year-old male who is followed for issues 1. Hypertension 2. Obstructive sleep apnea with lapse in treatment 3. Acute COVID infection with postviral syndrome Patient is referred now having sought ongoing evaluation through primary care office. Notes approximately 3 to 4 weeks history of worsening cough and shortness of breath. Initially began with acute viral syndrome which also had. Recently treated on 05/26/2023 due to persistent cough with prednisone and bronchodilators with Advair Sought follow-up for persistent shortness of breath yesterday and was found to be in atrial fibrillation with rapid ventricular response. Patient had been aware of his heart pounding and racing for greater than 1 week. could feel it pounding in his chest. Patient not associating symptoms. But dyspneic on exertion, rhonchorous cough Patient denies prior history of cardiac disease, rheumatic fever or scarlet fever or heart murmur. No history of TIA or stroke. Patient not diabetic. No history of vascular disease or congestive heart failure Renal function is normal Appetite and weight are generally stable No bleeding issues Has been less active recently due to plantar fasciitis issues but previously very vigorous with activity without restriction Allergies Allergy/AdvReac Type Severity Reaction Status Date / Time tetanus toxoid, adsorbed Allergy Intermediate FEVER,SWELL Verified 05/31/23 15:39 ING Home Medications Medication Instructions Recorded Confirmed Type fluticasone 100 mcg-salmeterol 50 1 ea inhalation BID 05/31/23 05/31/23 History mcg/dose blistr powdr for inhalation (Advair Diskus) losartan 50 mg tablet 50 mg PO DAILY 05/31/23 05/31/23 History pantoprazole 40 mg tablet,delayed 40 mg PO QAM 05/31/23 05/31/23 History release tadalafil 5 mg tablet 5 mg PO ONCE PRN Sexual Activity 05/31/23 05/31/23 History Patient History Medical History No pertinent family history HTN (hypertension) Surgical History No pertinent past surgical history Social History Smoking Status: Never smoker Hx Alcohol Use: No Hx Substance Use: No Preferred Language: Portuguese Communication Ability: Effective Regulatory Compliance Director Required: No Beliefs That Will Affect Care: None Other Information That Helps Us Care for You: No Feels Safe at Home: Yes Safety Concerns: Feels Safe At This Time Review of Systems Review of Systems: All systems reviewed & are unremarkable except as noted in HPI & below Physical Exam Constitutional: WD/WN, vitals as above Eyes: PERRL, conjunctivae normal, anicteric sclerae ENMT: external ear and nose normal, oropharynx normal Neck: trachea midline, no thyromegaly Respiratory: Auscultation: + rhonchi (With forced cough right greater than left) Cardiovascular: Rate/Rhythm: + irregularly irregular Heart Sounds: normal S1 and normal S2; no gallop and no murmur Palpation: normal PMI Vessels: normal carotid upstroke and radial pulses present; no JVD and no carotid bruit Extremities: no edema Gastrointestinal (Abdomen): normal bowel sounds, soft, nontender, no hepatosplenomegaly Musculoskeletal: no cyanosis or clubbing, extremities motor strength 5/5 Skin: no rashes, warm and dry Neurologic: PERRL, EOMI, accommodation nl, no face palsy, no dysarthria Psychiatric: A+Ox3, euthymic affect Results & Data Vital Signs (Past 12 Hours) Vital Signs Pulse Pulse Resp BP BP Pulse Ox O2 Del Method 06/01/23 12:00 114 H 23 06/01/23 11:59 106 H 18 153/80 H 06/01/23 11:00 106 H 21 06/01/23 07:57 111 H 18 130/94 98 Room Air 06/01/23 06:44 90 06/01/23 06:36 107 H 18 137/106 H 97 Room Air 06/01/23 03:57 126 H 06/01/23 02:06 103 H 20 132/96 94 Room Air Laboratory Results Laboratory Results - last 24 hr 05/31/23 05/31/23 06/01/23 14:56 15:15 02:27 WBC 5.91 5.70 RBC 5.36 4.95 Hgb 16.6 15.2 Hct 46.6 43.6 MCV 86.9 88.1 MCH 31.0 30.7 MCHC 35.6 34.9 RDW Std Deviation 40.4 41.4 RDW Coeff of [place] 12.9 12.9 Plt Count 270 231 MPV 9.8 9.6 Immature Gran % (Auto) 0.5 0.4 Neut % (Auto) 59.0 47.7 Lymph % (Auto) 29.9 43.3 [place] % (Auto) 9.6 6.7 Eos % (Auto) 0.3 1.2 Baso % (Auto) 0.7 0.7 Neut # (Auto) 3.48 2.72 Lymph # (Auto) 1.77 2.47 [place] # (Auto) 0.57 0.38 Eos # (Auto) 0.02 0.07 Baso # (Auto) 0.04 0.04 Immature Gran # (Auto) 0.03 0.02 PT 10.9 INR 1.0 APTT 27 49 H PTT Ratio 1.0 1.7 D-Dimer 1050 H* Heparin Anti-Xa, Unfract 0.57 Sodium 139 136 Potassium 4.1 3.7 Chloride 103 103 Carbon Dioxide 26 23 Anion Gap 10 10 BUN 15 16 Creatinine 1.26 1.10 Est Cr Clr Drug Dosing 80.3 91.6 Est GFR ( Amer) 72.9 85.9 Est GFR (Non-Af Amer) 62.9 74.1 BUN/Creatinine Ratio 11.9 14.5 Glucose 118 H 124 H Calcium 10.4 H 9.1 Magnesium 1.6 L Troponin I High Sens 6.4 8.2 Lipase 70 SARS-CoV-2, RNA, NAAT POSITIVE A* 06/01/23 11:39 WBC RBC Hgb Hct MCV MCH MCHC RDW Std Deviation RDW Coeff of [place] Plt Count MPV Immature Gran % (Auto) Neut % (Auto) Lymph % (Auto) [place] % (Auto) Eos % (Auto) Baso % (Auto) Neut # (Auto) Lymph # (Auto) [place] # (Auto) Eos # (Auto) Baso # (Auto) Immature Gran # (Auto) PT INR APTT PTT Ratio D-Dimer Heparin Anti-Xa, Unfract Sodium Potassium Chloride Carbon Dioxide Anion Gap BUN Creatinine Est Cr Clr Drug Dosing Est GFR ( Amer) Est GFR (Non-Af Amer) BUN/Creatinine Ratio Glucose Calcium Magnesium Troponin I High Sens 4.9 Lipase SARS-CoV-2, RNA, NAAT Diagnostic Findings Chest CTA 05/31/2023 MPRESSION: 1. No evidence for a pulmonary embolus. 2. There are few small patchy and nodular groundglass airspace opacities within the right upper lobe posteriorly. This favors a low-grade pneumonitis. 3. Hepatic steatosis. Echocardiogram 06/01/2023 Mild left ventricular prophy with normal wall motion EF 60-65% Normal left atrial size Mild aortic valve sclerosis without other significant valvular disease. No evidence of pulmonary hypertension Mild aortic root enlargement ECG Additional Comments: EKG 05/31/2023 after diltiazem drip Atrial fibrillation rate 91 bpm, poor R wave progression V1 V2 minor nonspecific ST segment change
[2023-06-01] MEDS ORDERED: METOPROLOL TARTRATE 50 MG TAB PO STA (13:11)
--- NOTE | 2023-06-01 13:34 | Hospitalist Progress Note ---
Date of Service June 01, 2023 Assessment & Plan (1) Atrial fibrillation: Plan: 57-year-old male with past med significant for hyperlipidemia, obstructive sleep apnea currently not on CPAP, hypertension, GERD presents with ongoing shortness of breath and cough going on for last 3 weeks, went to PCP office today for worsening sob and was found in rapid A-fib and was sent to ER. Atrial Fibrillation with RVR Patient was sent from PCP office for palpitation and shortness of breath EKG on admission personally reviewed; consistent with atrial fibrillation with RVR High-sensitivity troponin negative Echocardiogram showed EF of 60 to 65% with mild concentric left ventricular hypertrophy Patient was initially placed on Cardizem drip; switched over to metoprolol On heparin drip; prescription for Eliquis sent to check the gabriel Continue to monitor on telemetry COVID-19 infection Mild pneumonitis Patient reports cough COVID-19 positive in ED CTA chest personally reviewed; mild pneumonitis present within right upper lobe posteriorly. No PE. Patient is on room air; no indication for remdesivir or dexamethasone Hypertensive urgency On losartan and metoprolol. Continue to monitor blood pressure GERD Protonix DVT prophylaxis IV heparin Disposition Continues to be hospitalized for A-fib with RVR requiring close telemetry monitoring. Full code Time spent evaluating patient, direct bedside care, chart review, placing orders, interpretation of diagnostic studies, discussion with consultants, patient, and family members, as well as other required patient management activities is 60 minutes Please note the above document was generated using voice recognition software. It may contain grammatical, syntax or spelling errors. Any formal questions or concerns about the content, text or information contained within the body of this dictation should be directly addressed to the provider for clarification Admission and Anticipated Discharge Date Admission Date: May 31, 2023 Subjective Patient seen and examined at bedside. He is sitting up on the chair comfortably. He reports improvement in palpitation. He is having cough; no shortness of breath. Review of Systems Review of Systems: All systems reviewed & are unremarkable except as noted in Subjective Physical Exam Physical Exam: General- Not in distress. Head- atraumatic Eyes- PERRL. ENT- oropharynx clear Neck- supple, no JVD. Lungs- clear to auscultation , no wheezing or crackles. Heart- irregular rhythm;Tachycardia, no murmur, no gallop. Abdomen- normal bowel sounds, soft, nontender, no distension. Extremities- no pretibial edema, no erythema seen. Neuro- alert, oriented x 3; PERRL, no facial palsy; no dysarthria; moves extremities. Skin- warm & dry Results & Data Results & Data Vital Signs (Past 12 Hours) Vital Signs Pulse Pulse Resp BP BP Pulse Ox O2 Del Method 06/01/23 12:00 114 H 23 06/01/23 11:59 106 H 18 153/80 H 06/01/23 11:00 106 H 21 06/01/23 07:57 111 H 18 130/94 98 Room Air 06/01/23 06:44 90 06/01/23 06:36 107 H 18 137/106 H 97 Room Air 06/01/23 03:57 126 H 06/01/23 02:06 103 H 20 132/96 94 Room Air Laboratory Results Laboratory Results WBC 5.70 K/ul (4.8-10.8) 06/01/23 02:27 RBC 4.95 M/uL (4.70-6.10) 06/01/23 02:27 Hgb 15.2 g/dl (14.0-18.0) 06/01/23 02:27 Hct 43.6 % (42.0-52.0) 06/01/23 02:27 MCV 88.1 fL (80.0-100.0) 06/01/23 02:27 MCH 30.7 pg (25.0-34.0) 06/01/23 02:27 MCHC 34.9 g/dL (32.0-36.0) 06/01/23 02:27 RDW Std Deviation 41.4 fL (36.4-46.3) 06/01/23 02:27 RDW Coeff of Claudette 12.9 % (11.5-14.5) 06/01/23 02:27 Plt Count 231 K/uL (130-400) 06/01/23 02:27 MPV 9.6 fL (9.4-12.4) 06/01/23 02:27 Immature Gran % (Auto) 0.4 % 06/01/23 02:27 Neut % (Auto) 47.7 % 06/01/23 02:27 Lymph % (Auto) 43.3 % 06/01/23 02:27 [place] % (Auto) 6.7 % 06/01/23 02:27 Eos % (Auto) 1.2 % 06/01/23 02:27 Baso % (Auto) 0.7 % 06/01/23 02:27 Neut # (Auto) 2.72 K/uL (1.40-6.50) 06/01/23 02:27 Lymph # (Auto) 2.47 K/uL (1.20-3.40) 06/01/23 02:27 [place] # (Auto) 0.38 K/uL (0.11-0.59) 06/01/23 02:27 Eos # (Auto) 0.07 K/uL (0.00-0.50) 06/01/23 02:27 Baso # (Auto) 0.04 K/uL (0.00-0.20) 06/01/23 02:27 Immature Gran # (Auto) 0.02 K/uL (0.01-0.20) 06/01/23 02:27 PT 10.9 Seconds (9.0-12.0) 05/31/23 14:56 INR 1.0 (0.9-1.1) 05/31/23 14:56 APTT 49 Seconds (21-31) H 06/01/23 02:27 PTT Ratio 1.7 06/01/23 02:27 D-Dimer 1050 ug/L FEU (0-500) H* 05/31/23 14:56 Heparin Anti-Xa, Unfract 0.57 IU/ml (0.3-0.7) 06/01/23 02:27 Sodium 136 mmol/L (136-145) 06/01/23 02:27 Potassium 3.7 mmol/L (3.5-5.1) 06/01/23 02:27 Chloride 103 mmol/L (98-107) 06/01/23 02:27 Carbon Dioxide 23 mmol/L (21-32) 06/01/23 02:27 Anion Gap 10 (3-11) 06/01/23 02:27 BUN 16 mg/dl (6-23) 06/01/23 02:27 Creatinine 1.10 mg/dl (0.6-1.4) 06/01/23 02:27 Est Cr Clr Drug Dosing 91.6 ml/min 06/01/23 02:27 Est GFR ( Amer) 85.9 ml/min 06/01/23 02:27 Est GFR (Non-Af Amer) 74.1 ml/min 06/01/23 02:27 BUN/Creatinine Ratio 14.5 (10-20) 06/01/23 02:27 Glucose 124 mg/dl (70-99(Fasting)) H 06/01/23 02:27 Calcium 9.1 mg/dl (8.6-10.3) 06/01/23 02:27 Magnesium 1.6 mg/dl (1.7-2.4) L 06/01/23 02:27 Troponin I High Sens 4.9 pg/ml (0-20) 06/01/23 11:39 Lipase 70 U/L (11-82) 05/31/23 14:56 SARS-CoV-2, RNA, NAAT POSITIVE (NEGATIVE) A* 05/31/23 15:15 Impressions Chest X-Ray 05/31/23 15:04 XR chest 1V portable HISTORY: Cough. Shortness of breath. Chest pain, nonspecific COMPARISON: None. FINDINGS: The lungs are clear. Cardiac silhouette is normal in size. No pleural effusions. No pneumothorax. IMPRESSION: No acute process. ACT 112: Negative or not required by law. Electronically signed by: Montrell Woodard M.D. 05/31/2023 4:09 PM Chest CTA 05/31/23 17:03 CHEST CTA for PULMONARY ARTERIES CT DOSE: 887.09 mGy.cm HISTORY: Shortness of breath. Interval development of atrial fibrillation. ro PE TECHNIQUE: Multiaxial CT images of the chest were performed following the in travenous administration of contrast to evaluate the pulmonary arteries. 3D/Maximal intensity projection images were also obtained. Sagittal and coronal reformations were also reviewed. A dose lowering technique was utilized adhering to the principles of ALARA. COMPARISON STUDY: None. FINDINGS: Normal caliber thoracic aorta with no evidence for a dissection. The heart is top normal in size. No filling defects within the pulmonary arteries to suggest a pulmonary embolus. Limited views of the upper abdomen demonstrate hepatic steatosis and a normal spleen. The visualized adrenal glands are unremarkable. The thyroid gland enhances normally. Normal esophagus. No pleural or pericardial effusions. Calcified subcarinal lymph nodes. No lymphadenopathy within the chest. No acute fractures. No pneumothorax. Mild central bronchial wall thickening. Calcified granuloma within the right lower lobe. Right lower lobe linear densities favor subsegmental atelectasis. There are few small patchy and nodular groundglass airspace opacities within the right upper lobe posteriorly. This favors a low-grade pneumonitis. IMPRESSION: 1. No evidence for a pulmonary embolus. 2. There are few small patchy and nodular groundglass airspace opacities within the right upper lobe posteriorly. This favors a low-grade pneumonitis. 3. Hepatic steatosis. ACT 112: Negative or not required by law. Electronically signed by: Montrell Woodard M.D. 05/31/2023 6:33 PM (1) Atrial fibrillation Atrial fibrillation type: unspecified Qualified Code(s): I48.91 - Unspecified atrial fibrillation
--- NOTE | 2023-06-01 13:59 | Electrocardiogram Report ---
Test Reason : Blood Pressure : / mmHG Vent. Rate : 091 BPM Atrial Rate : 000 BPM P-R Int : 000 ms QRS Dur : 084 ms QT Int : 308 ms P-R-T Axes : 000 017 024 degrees QTc Int : 378 ms Atrial fibrillation Septal infarct (cited on or before 31-MAY-2023) Abnormal ECG When compared with ECG of 31-MAY-2023 15:34, (unconfirmed) Vent. rate has decreased BY [address] no longer depressed in Inferior leads Confirmed by Aries Kirk ([id number]) on 06/01/2023 1:59:40 PM Referred By: Analy Betancourt Confirmed By:Aries Kirk
--- NOTE | 2023-06-01 13:59 | Electrocardiogram Report ---
Test Reason : Blood Pressure : / mmHG Vent. Rate : 156 BPM Atrial Rate : 000 BPM P-R Int : 000 ms QRS Dur : 074 ms QT Int : 296 ms P-R-T Axes : 000 021 -21 degrees QTc Int : 477 ms Atrial fibrillation with rapid ventricular response Septal infarct (cited on or before 31-MAY-2023) Abnormal ECG When compared with ECG of 31-MAY-2023 14:59, Nonspecific T wave abnormality now evident in Inferior leads Confirmed by Aries Kirk ([id number]) on 06/01/2023 1:59:33 PM Referred By: Analy Betancourt Confirmed By:Aries Kirk
--- NOTE | 2023-06-01 14:35 | Electrocardiogram Report ---
Test Reason : Blood Pressure : / mmHG Vent. Rate : 081 BPM Atrial Rate : 081 BPM P-R Int : 156 ms QRS Dur : 082 ms QT Int : 386 ms P-R-T Axes : 052 024 017 degrees QTc Int : 448 ms Sinus rhythm with Premature supraventricular complexes Septal infarct (cited on or before 31-MAY-2023) Abnormal ECG When compared with ECG of 31-MAY-2023 15:35, (unconfirmed) Sinus rhythm has replaced Atrial fibrillation QT has lengthened Confirmed by Aries Kirk ([id number]) on 06/01/2023 2:34:56 PM Referred By: Analy Betancourt Confirmed By:Aries Kirk
[2023-06-01] MEDS: METOPROLOL TARTRATE 50 MG TAB PO SCH (21:08)
[2023-06-01] MEDS: guaiFENesin/CODEINE 100MG/10MG 5ML UDC PO PRN (23:32)
[2023-06-02] MEDS: HEPARIN SODIUM/DEXTROSE 25,000 UNITS/500 ML BAG IV SCH (04:03)
[2023-06-02] MEDS: ACETAMINOPHEN 325 MG TAB PO PRN (06:07)
[2023-06-02] MEDS: guaiFENesin/CODEINE 100MG/10MG 5ML UDC PO PRN (06:07)
[2023-06-02] MEDS: NITROGLYCERIN 2% OINTMENT 30GM TUBE EXT SCH (06:07)
[2023-06-02 07:40] LABS: ANTI-Xa, UFH(UnfractionatedHep 0.71 IU/ml (0.3-0.7)
[2023-06-02] MEDS: PANTOprazole 40 MG TAB PO SCH (10:28)
[2023-06-02] MEDS: LOSARTAN POTASSIUM 50 MG TAB PO SCH (10:28)
[2023-06-02] MEDS: FLUTICASONE/VILANTEROL 100/25MCG 14 PUFFS/INHALER INH SCH (11:21)
[2023-06-02] MEDS: METOPROLOL TARTRATE 50 MG TAB PO SCH (11:21)
--- NOTE | 2023-06-02 12:37 | Electrocardiogram Report ---
Test Reason : Blood Pressure : / mmHG Vent. Rate : 082 BPM Atrial Rate : 082 BPM P-R Int : 160 ms QRS Dur : 084 ms QT Int : 386 ms P-R-T Axes : 044 004 004 degrees QTc Int : 450 ms Normal sinus rhythm with sinus arrhythmia Normal ECG When compared with ECG of 01-JUN-2023 13:37, Premature supraventricular complexes are no longer Present Confirmed by Aries Kirk ([id number]) on 06/02/2023 12:36:39 PM Referred By: Analy Betancourt Confirmed By:Aries Kirk
--- NOTE | 2023-06-02 12:48 | Discharge Summary ---
Date of Service June 02, 2023 Admission HPI Per Admitting Provider 57-year-old male with past med significant for hyperlipidemia, obstructive sleep apnea currently not on CPAP, hypertension, GERD presents with ongoing shortness of breath and cough going on for last 3 weeks, went to PCP office today for worsening sob and was found in rapid A-fib and was sent to ER. Patient states the last 3 weeks he is having cough and congestion and was getting progressively short of breath. Last weekend he had a temperature spike for 2 days. Yesterday had some loss of sensation of taste but that has come back today. Is getting more short of breath went to PCP and found to be in rapid A-fib. Patient states currently his shortness improved after his heart rate is under control. He also notes some chest heaviness today and is better now but still has some . Denies any headaches. No bodyaches. States appetite is good. No blurred visions. Has some sore throat. No nausea. No abdominal pain. Normal bowel and bladder movements. Denies any blood in the stools or black stools. No hematuria. Past medical history. As mentioned above Past surgical history. Colonoscopy. EGD. Lumbar spine fusion surgery. Carpectomy all bones on left wrist. Knee Repair cruciate ligament. Repair of nasal septum. Social history. Quit smoking 1992. Alcohol couple of times a week. No drug use. Family history. Aunt has diabetes. Uncle has diabetes. Admission Exam Per Admitting Provider General- Not in distress. Head- atraumatic Eyes- PERRL. ENT- oropharynx clear Neck- supple, no JVD. Lungs- clear to auscultation , no wheezing or crackles. Heart- irregular rhythm;Tachycardia, no murmur, no gallop. Abdomen- normal bowel sounds, soft, nontender, no distension. Extremities- no pretibial edema, no erythema seen. Neuro- alert, oriented x 3; PERRL, no facial palsy; no dysarthria; moves extremities. Skin- warm & dry Principal Diagnosis Atrial fibrillation with RVR COVID-19 infection Discharge Exam General- Not in distress. Head- atraumatic Eyes- PERRL. ENT- oropharynx clear Neck- supple, no JVD. Lungs- clear to auscultation , no wheezing or crackles. Heart-regular rhythm;Tachycardia, no murmur, no gallop. Abdomen- normal bowel sounds, soft, nontender, no distension. Extremities- no pretibial edema, no erythema seen. Neuro- alert, oriented x 3; PERRL, no facial palsy; no dysarthria; moves extremities. Skin- warm & dry Discharge Data Allergies Allergy/AdvReac Type Severity Reaction Status Date / Time tetanus toxoid, adsorbed Allergy Intermediate FEVER,SWELL Verified 05/31/23 15:39 ING Consultations 05/31/23 18:44 ED Decision to Admit Stat 06/01/23 08:00 Consult Cardiology Routine Ordered Studies 05/31/23 17:03 CT angio chest PE protocol Stat Hospital Course (1) Atrial fibrillation: 57-year-old male with past med significant for hyperlipidemia, obstructive sleep apnea currently not on CPAP, hypertension, GERD presents with ongoing shortness of breath and cough going on for last 3 weeks, went to PCP office today for worsening sob and was found in rapid A-fib and was sent to ER. Atrial Fibrillation with RVR Patient was sent from PCP office for palpitation and shortness of breath EKG on admission personally reviewed; consistent with atrial fibrillation with RVR High-sensitivity troponin negative Echocardiogram showed EF of 60 to 65% with mild concentric left ventricular hypertrophy Patient was initially placed on Cardizem drip; switched over to metoprolol Patient converted to sinus rhythm during the hospitalization. Patient discharged on metoprolol tartate 50 mg twice daily and Eliquis for anticoagulation for next 30 days. COVID-19 infection Mild pneumonitis Patient reports cough COVID-19 positive in ED CTA chest personally reviewed; mild pneumonitis present within right upper lobe posteriorly. No PE. Patient is on room air at discharge; no indication for remdesivir or dexamethasone Hypertensive urgency On losartan and metoprolol. Blood pressure well-controlled Please note the above document was generated using voice recognition software. It may contain grammatical, syntax or spelling errors. Any formal questions or concerns about the content, text or information contained within the body of this dictation should be directly addressed to the provider for clarification Total Time Total Time Spent Total Time Spent (In Minutes): 45 Total Time Includes: Examination of the Patient, Discharge Planning, Medication Reconciliation, Communication With Other Providers and Other Discharge Plan Discharge Items Patient Disposition: Home - Self-Care Reason For Visit: RAPID A FIB, COVID Discharge Diagnosis: A-fib with RVR COVID-19 infection Activity: Resume your previous activity Non-emergency contact: Primary Care Provider Call non-emergency contact if: you have any medication questions and your symptoms worsen Follow-up/Referrals: Arvind Marlow MD [Physician] - (The Cardiology office will contact you for a follow up appointment if needed. ) Analy Betancourt, [Primary Care Provider] - (Date & Time 06/07/2023 10:00 AM Provider Edwin Sargent MD [facility] ) Diet: Regular Addtl Attending Provider Instructions: You were admitted to the hospital due to irregular heart rhythm called atrial fibrillation. He was seen by brine process operator during the hospitalization. They recommend following medication: 1) Toprol 50 mg twice daily 2) Eliquis 5 mg twice daily Continue to take all your medication as prescribed before. You are also found to have COVID-[address] of the chest showed mild pneumonitis. You did not require any supplemental oxygen. Please wear mask for next 7 days. Pending Studies at Discharge: No Stand-Alone Forms: My [facility], Smoking Cessation Medications and DC Order Prescriptions: New Eliquis 5 mg tablet 5 mg PO BID Qty: 60 0RF metoprolol tartrate 50 mg Tablet 50 mg PO BID Qty: 60 0RF Continued losartan 50 mg tablet 50 mg PO DAILY pantoprazole 40 mg tablet,delayed release (DR/EC) 40 mg PO QAM fluticasone propion-salmeterol [Advair Diskus] 100-50 mcg/dose blister with device 1 ea INHALATION BID tadalafil 5 mg tablet 5 mg PO ONCE PRN (Reason: Sexual Activity) Discharge Orders: Discharge Order (Routine); Ordered 06/02/23 Ordered By: Blas Eubanks Admission Data Admit Date/Time: 05/31/23 20:15 Attending Provider: Blas Eubanks Admit Provider: Deepak Tim Primary Care Provider: Analy Betancourt Other Providers: Yane Barry; Arvind Marlow Other Interventions: Discharge Summary Assessment (RN) Last Done: 06/02/23 12:18
--- NOTE | 2023-06-02 14:48 | Cardiology Progress Note ---
Date of Service June 02, 2023 Assessment & Plan (1) Atrial fibrillation with rapid ventricular response: (2) HTN (hypertension): (3) COVID-19: Plan 57-year-old male presented yesterday to primary care office to follow-up with persistent symptoms of respiratory distress and cough following acute viral syndrome. Patient and admit the admitted where heart rate had been elevated and pounding at times. On evaluation patient found to be in atrial fibrillation with rapid ventricular response, by description greater than 1 weeks duration Heart rates have slowed since ER presentation with IV diltiazem EKG without ischemia or injury pattern Cardiac enzymes normal Echocardiogram with normal LV systolic function without wall motion abnormality Chest CT without pulmonary embolus but notable for pneumonitis Impression: 1. Atrial fibrillation with rapid ventricular response: Discussed atrial fibrillation in detail with patient and . Heart rate is slowing but on IV diltiazem. Will discontinue IV diltiazem and begin beta-eulogio initially with metoprolol tartrate 50 mg twice daily. Continue anticoagulation with IV heparin with plans to transition to Eliquis for at least 3060 days management depending on clinical course. [id number] 2 score of 1 only No plans for acute cardioversion given minimal symptoms and rates coming under control. Duration appears greater than 1 week by patient and 's history 2. Hypertension/hypertensive urgency: Agree with continuing losartan in addition to beta-eulogio added above. Mild aortic root enlargement noted on CT. Will continue topical nitrates initially. No signs of heart failure on physical examination or x-ray. Will require initiation of treatment of underlying sleep apnea. Recent prednisone may have resulted in an increase in blood pressure 3. Acute viral syndrome/COVID pneumonitis per primary service 4. Obstructive sleep apnea: Full assessment and treatment warranted 06/02/2023 Patient clinically improved. Converted to sinus rhythm with oral metoprolol EKG normal postconversion Pulmonary status stable Recommendations: Continue metoprolol titrate 50 mg twice per day in addition to losartan Eliquis 5 mg twice per day on discharge. Discussed treatment likely 30 days or greater Patient to pursue reinstitution of sleep apnea therapy Will arrange cardiology follow-up 1 month Admission and Anticipated Discharge Date Admission Date: May 31, 2023 Subjective Patient was seen and examined, chart, medications, telemetry reviewed. Converted to sinus rhythm after oral metoprolol last evening No further atrial arrhythmias Respiratory status stable Still with mild cough but no significant sputum production no hypoxia Review of Systems Review of Systems: All systems reviewed & are unremarkable except as noted in Subjective Physical Exam Constitutional: WD/WN, vitals as above Eyes: PERRL, conjunctivae normal, anicteric sclerae ENMT: external ear and nose normal, oropharynx normal Neck: trachea midline, no thyromegaly Respiratory: Auscultation: + rhonchi (With forced cough right greater than left) Cardiovascular: Rate/Rhythm: regular rate and regular rhythm Heart Sounds: normal S1 and normal S2; no gallop and no murmur Palpation: normal PMI Vessels: normal carotid upstroke and radial pulses present; no JVD and no carotid bruit Extremities: no edema Gastrointestinal (Abdomen): normal bowel sounds, soft, nontender, no hepatosplenomegaly Musculoskeletal: no cyanosis or clubbing, extremities motor strength 5/5 Skin: no rashes, warm and dry Neurologic: PERRL, EOMI, accommodation nl, no face palsy, no dysarthria Psychiatric: A+Ox3, euthymic affect Results & Data Vital Signs (Past 12 Hours) Vital Signs Temp Pulse Pulse Resp BP BP Pulse Ox 06/02/23 12:18 36.5 C 84 18 142/106 H 144/106 H 92 06/02/23 11:38 36.5 C 84 18 142/106 H 144/106 H 92 06/02/23 09:00 80 06/02/23 09:00 06/02/23 07:51 36.4 C 85 24 141/105 H 95 06/02/23 04:07 37.1 C 82 18 137/103 H 92 O2 Del Method 06/02/23 12:18 06/02/23 11:38 Room Air 06/02/23 09:00 06/02/23 09:00 Room Air 06/02/23 07:51 Room Air 06/02/23 04:07 Room Air Laboratory Results Laboratory Results - last 24 hr 06/01/23 06/02/23 17:43 06:27 Heparin Anti-Xa, Unfract 0.71 H* Troponin I High Sens 6.4
== END 2023-06-02 12:59 | disposition home or self-care (01) ==
LOC: ED 14:30 → INTOOBSV 20:15 → EDINP 20:15 → 2E 22:32